=== PATIENT | male | born 1930 | race Caucasian/White ===

== ENCOUNTER 2017-02-07 15:15 | Inpatient (IN) | payer OTHER ==
[~2017-02-07] VITALS: Ht 182.9 cm; Wt 74.2 kg
[2017-02-07] MEDS ORDERED: SODIUM CHLORIDE 0.9% 1,000ML IVBOLUS ONE ×2 (16:30→17:30)
[2017-02-07 16:41] LABS: HEMATOCRIT 56.9 % (39.2-51.8); HEMOGLOBIN 19.1 g/dL (13.7-18.0); WHITE BLOOD COUNT 11.4 x10^3/uL (3.4-10)
[2017-02-07 16:55] LABS: BLOOD UREA NITROGEN 59 mg/dL (7-18)
[2017-02-07 17:01] LABS: ASPARTATE AMINO TRANSFERASE 98 U/L (15-37)
[2017-02-07 17:02] LABS: IS PT STATUS REG ER OR PRE ER? YES
[2017-02-07] MEDS ORDERED: POLYETHYLENE GLYCOL 17 GM PACKET PO PRN (18:00)
[2017-02-07] MEDS ORDERED: BISACODYL 10 MG SUPP PR PRN (18:00)
[2017-02-07] MEDS ORDERED: ONDANSETRON 2MG/ML, 2ML IVPush PRN (18:00)
[2017-02-07 20:00] VITALS: BP 110/85
[2017-02-07] MEDS: SODIUM CHLORIDE 0.9% 1,000 ML IV SCH (20:02)
[2017-02-07] MEDS: HEPARIN 5,000 UNITS/ML, 1ML SQ SCH (20:03)
[2017-02-08 02:38] VITALS: BP 134/60
[2017-02-08] MEDS: HEPARIN 5,000 UNITS/ML, 1ML SQ SCH ×3 (03:56→21:52)
[2017-02-08 05:01] LABS: HEMATOCRIT 47.8 % (39.2-51.8); HEMOGLOBIN 16.2 g/dL (13.7-18.0); WHITE BLOOD COUNT 9.1 x10^3/uL (3.4-10)
[2017-02-08] MEDS: SODIUM CHLORIDE 0.9% 1,000 ML IV SCH (05:11)
[2017-02-08 05:20] LABS: ASPARTATE AMINO TRANSFERASE 77 U/L (15-37); BLOOD UREA NITROGEN 44 mg/dL (7-18)
[2017-02-08 06:44] VITALS: BP 165/77
[2017-02-08] MEDS: SENNA/DOCUSATE TABLET PO SCH (09:33)
[2017-02-08] MEDS: POTASSIUM CHLORIDE 20 MEQ in DEXTROSE 5% 1,000 ML IV SCH ×2 (10:21→20:00)
[2017-02-08 14:07] VITALS: BP 133/79
[2017-02-08] MEDS: ASPIRIN 81 MG TABLET EC PO SCH (18:14)
[2017-02-08] MEDS: METOPROLOL TARTRATE 25 MG TABLET PO SCH (18:14)
[2017-02-08 18:21] LABS: BLOOD UREA NITROGEN 32 mg/dL (7-18)
[2017-02-08] MEDS: D5%-0.45NACL+KCL 20MEQ 1,000 ML IV SCH (21:51)
[2017-02-08 22:05] VITALS: BP 112/81
[2017-02-09 00:26] LABS: PATH.CAST-FLAG NOT PRESENT; SPERM-FLAG NOT PRESENT; SRC-FLAG NOT PRESENT; XTAL-FLAG NOT PRESENT; YLC-FLAG NOT PRESENT
[2017-02-09] MEDS ORDERED: NITROFURANTOIN (MACROBID) 100 MG CAPSULE PO SCH (01:00)
[2017-02-09] MEDS: NITROFURANTOIN 5MG/ML ORAL SUSP PO SCH ×3 (01:17→20:48)
[2017-02-09 02:00] VITALS: BP 110/73
[2017-02-09] MEDS: ASPIRIN 81 MG TABLET EC PO SCH (05:44)
[2017-02-09] MEDS: METOPROLOL TARTRATE 25 MG TABLET PO SCH ×2 (05:44→17:06)
[2017-02-09] MEDS: HEPARIN 5,000 UNITS/ML, 1ML SQ SCH ×3 (05:45→20:42)
[2017-02-09 06:03] LABS: HEMATOCRIT 43.1 % (39.2-51.8); HEMOGLOBIN 14.6 g/dL (13.7-18.0); WHITE BLOOD COUNT 8.3 x10^3/uL (3.4-10)
[2017-02-09] MEDS: D5%-0.45NACL+KCL 20MEQ 1,000 ML IV SCH ×2 (06:29→16:36)
[2017-02-09] MEDS: SENNA/DOCUSATE TABLET PO SCH (08:20)
[2017-02-09 08:27] VITALS: BP 115/68
[2017-02-09 12:32] LABS: BLOOD UREA NITROGEN 24 mg/dL (7-18)
[2017-02-09 13:50] VITALS: BP 149/89
[2017-02-09 18:09] LABS: BLOOD UREA NITROGEN 22 mg/dL (7-18)
[2017-02-09 19:06] VITALS: BP 124/67
[2017-02-10 01:20] VITALS: BP 130/73
[2017-02-10] MEDS: D5%-0.45NACL+KCL 20MEQ 1,000 ML IV SCH ×2 (03:30→15:49)
[2017-02-10 05:40] VITALS: BP 110/61
[2017-02-10] MEDS: ASPIRIN 81 MG TABLET EC PO SCH (05:44)
[2017-02-10] MEDS: METOPROLOL TARTRATE 25 MG TABLET PO SCH ×2 (05:45→18:45)
[2017-02-10] MEDS: HEPARIN 5,000 UNITS/ML, 1ML SQ SCH ×3 (05:45→21:44)
[2017-02-10 08:48] VITALS: BP 162/89
[2017-02-10] MEDS: SENNA/DOCUSATE TABLET PO SCH (09:00)
[2017-02-10] MEDS: NITROFURANTOIN 5MG/ML ORAL SUSP PO SCH (10:31)
[2017-02-10 13:48] VITALS: BP 114/66
[2017-02-10] MEDS: ACETAMINOPHEN 325 MG TABLET PO PRN (14:49)
[2017-02-10 15:41] LABS: BLOOD UREA NITROGEN 19 mg/dL (7-18)
[2017-02-10 18:51] VITALS: BP 132/61
[2017-02-10] MEDS: CEFTRIAXONE PMX 1GM/50ML 50 ML IV SCH (21:43)
[2017-02-11 00:29] VITALS: BP 145/80
[2017-02-11] MEDS: D5%-0.45NACL+KCL 20MEQ 1,000 ML IV SCH ×4 (02:43→15:52)
[2017-02-11] MEDS: HEPARIN 5,000 UNITS/ML, 1ML SQ SCH ×3 (04:24→22:12)
[2017-02-11] MEDS: ASPIRIN 81 MG TABLET EC PO SCH (04:25)
[2017-02-11] MEDS: METOPROLOL TARTRATE 25 MG TABLET PO SCH ×2 (04:25→18:48)
[2017-02-11] MEDS: SENNA/DOCUSATE TABLET PO SCH (09:00)
[2017-02-11 09:15] VITALS: BP 130/79
[2017-02-11 09:57] LABS: BLOOD UREA NITROGEN 18 mg/dL (7-18)
[2017-02-11] MEDS: ACETAMINOPHEN 325 MG TABLET PO PRN ×2 (14:03→22:22)
[2017-02-11 16:00] VITALS: BP 116/61
[2017-02-11] MEDS: CEFTRIAXONE PMX 1GM/50ML 50 ML IV SCH (17:18)
[2017-02-11 18:41] VITALS: BP 121/69
[2017-02-12] MEDS: D5%-0.45NACL+KCL 20MEQ 1,000 ML IV SCH ×3 (00:30→17:53)
[2017-02-12 01:39] VITALS: BP 108/63
[2017-02-12] MEDS: ASPIRIN 81 MG TABLET EC PO SCH (05:24)
[2017-02-12] MEDS: METOPROLOL TARTRATE 25 MG TABLET PO SCH ×2 (05:24→17:58)
[2017-02-12] MEDS: HEPARIN 5,000 UNITS/ML, 1ML SQ SCH ×3 (05:25→21:20)
[2017-02-12 05:45] LABS: BLOOD UREA NITROGEN 14 mg/dL (7-18)
[2017-02-12 05:53] LABS: HEMATOCRIT 41.1 % (39.2-51.8); HEMOGLOBIN 13.7 g/dL (13.7-18.0); WHITE BLOOD COUNT 6.4 x10^3/uL (3.4-10)
[2017-02-12 08:22] VITALS: BP 126/77
[2017-02-12] MEDS: SENNA/DOCUSATE TABLET PO SCH (09:00)
[2017-02-12 13:40] VITALS: BP 104/64
[2017-02-12] MEDS: CEFTRIAXONE PMX 1GM/50ML 50 ML IV SCH (17:53)
[2017-02-12] MEDS ORDERED: MAGNESIUM SULFATE PMX 2GM/50ML 50 ML IV ONE (18:30)
[2017-02-12 19:55] VITALS: BP 149/90
[2017-02-13 02:18] VITALS: BP 151/86
[2017-02-13] MEDS ORDERED: BISACODYL 10 MG SUPP PR PRN (04:30)
[2017-02-13] MEDS ORDERED: ONDANSETRON 2MG/ML, 2ML IVPush PRN (04:30)
[2017-02-13] MEDS ORDERED: ACETAMINOPHEN 325 MG TABLET PO PRN (04:30)
[2017-02-13] MEDS ORDERED: POLYETHYLENE GLYCOL 17 GM PACKET PO PRN (04:30)
[2017-02-13] MEDS: HEPARIN 5,000 UNITS/ML, 1ML SQ SCH ×3 (05:25→20:34)
[2017-02-13] MEDS: METOPROLOL TARTRATE 25 MG TABLET PO SCH ×2 (05:25→18:13)
[2017-02-13] MEDS: ASPIRIN 81 MG TABLET EC PO SCH (05:25)
[2017-02-13 06:13] LABS: BLOOD UREA NITROGEN 11 mg/dL (7-18)
[2017-02-13 06:34] VITALS: BP 123/67
[2017-02-13] MEDS: SENNA/DOCUSATE TABLET PO SCH (09:31)
[2017-02-13] MEDS: D5%-0.45NACL+KCL 20MEQ 1,000 ML IV SCH ×2 (09:31→20:33)
[2017-02-13 13:10] VITALS: BP 133/70
[2017-02-13] MEDS: CEFTRIAXONE PMX 1GM/50ML 50 ML IV SCH (17:06)
[2017-02-13 19:50] VITALS: BP 121/77
[2017-02-14] MEDS ORDERED: LORazepam 2 MG/ML, 1ML IVPush PRN (00:30)
[2017-02-14 02:00] VITALS: BP 131/78
[2017-02-14] MEDS: ASPIRIN 81 MG TABLET EC PO SCH ×2 (05:51→05:57)
[2017-02-14] MEDS: HEPARIN 5,000 UNITS/ML, 1ML SQ SCH ×3 (05:52→21:08)
[2017-02-14] MEDS: METOPROLOL TARTRATE 25 MG TABLET PO SCH ×3 (05:52→17:29)
[2017-02-14 05:59] LABS: BLOOD UREA NITROGEN 13 mg/dL (7-18)
[2017-02-14] MEDS: D5%-0.45NACL+KCL 20MEQ 1,000 ML IV SCH ×2 (06:36→17:16)
[2017-02-14 06:58] VITALS: BP 145/79
[2017-02-14] MEDS: SENNA/DOCUSATE TABLET PO SCH (08:29)
[2017-02-14 13:26] VITALS: BP 129/75
[2017-02-14] MEDS: CEFTRIAXONE PMX 1GM/50ML 50 ML IV SCH (17:18)
[2017-02-14 20:00] VITALS: BP 104/56
[2017-02-15 00:30] VITALS: BP 100/58
[2017-02-15] MEDS: HEPARIN 5,000 UNITS/ML, 1ML SQ SCH ×3 (05:04→20:33)
[2017-02-15] MEDS: ASPIRIN 81 MG TABLET EC PO SCH (05:04)
[2017-02-15] MEDS: METOPROLOL TARTRATE 25 MG TABLET PO SCH (05:06)
[2017-02-15 07:49] VITALS: BP 100/62
[2017-02-15] MEDS: SENNA/DOCUSATE TABLET PO SCH (08:48)
[2017-02-15 15:31] VITALS: BP 101/62
[2017-02-15 20:00] VITALS: BP 114/72
[2017-02-16 02:00] VITALS: BP 126/70
[2017-02-16] MEDS: ASPIRIN 81 MG TABLET EC PO SCH (05:19)
[2017-02-16] MEDS: HEPARIN 5,000 UNITS/ML, 1ML SQ SCH ×3 (05:20→19:54)
[2017-02-16 08:44] VITALS: BP 98/64
[2017-02-16] MEDS: SENNA/DOCUSATE TABLET PO SCH (08:50)
[2017-02-16 14:29] VITALS: BP 109/63
[2017-02-16 20:00] VITALS: BP 109/64
[2017-02-17 02:00] VITALS: BP 132/70
[2017-02-17] MEDS: ASPIRIN 81 MG TABLET EC PO SCH (05:25)
[2017-02-17] MEDS: HEPARIN 5,000 UNITS/ML, 1ML SQ SCH ×3 (05:25→20:58)
[2017-02-17 06:56] VITALS: BP 116/68
[2017-02-17 08:30] LABS: HEMATOCRIT 43.7 % (39.2-51.8); HEMOGLOBIN 14.7 g/dL (13.7-18.0); WHITE BLOOD COUNT 8.5 x10^3/uL (3.4-10)
[2017-02-17 08:38] LABS: ASPARTATE AMINO TRANSFERASE 27 U/L (15-37); BLOOD UREA NITROGEN 25 mg/dL (7-18)
[2017-02-17] MEDS: SENNA/DOCUSATE TABLET PO SCH (09:00)
[2017-02-17] MEDS: ATENOLOL 25 MG TABLET PO SCH (09:24)
[2017-02-17 12:45] VITALS: BP 125/77
[2017-02-17 19:16] VITALS: BP 106/65
[2017-02-18 01:46] VITALS: BP 111/58
[2017-02-18] MEDS: ATENOLOL 25 MG TABLET PO SCH (05:16)
[2017-02-18] MEDS: ASPIRIN 81 MG TABLET EC PO SCH (05:16)
[2017-02-18] MEDS: HEPARIN 5,000 UNITS/ML, 1ML SQ SCH ×3 (05:16→21:03)
[2017-02-18 08:17] VITALS: BP_SYST 102; BP_SYST 95; BP_DIAS 57; BP_DIAS 62
[2017-02-18] MEDS: SENNA/DOCUSATE TABLET PO SCH (09:31)
[2017-02-18 16:35] VITALS: BP_SYST 88; BP_SYST 91; BP_DIAS 50; BP_DIAS 53
[2017-02-18 19:08] VITALS: BP 123/62
[2017-02-18] MEDS ORDERED: ATENOLOL 25 MG TABLET PO SCH (21:00)
[2017-02-19 01:15] VITALS: BP 121/64
[2017-02-19] MEDS: ASPIRIN 81 MG TABLET EC PO SCH (05:19)
[2017-02-19] MEDS: HEPARIN 5,000 UNITS/ML, 1ML SQ SCH ×3 (05:19→22:16)
[2017-02-19] MEDS: SENNA/DOCUSATE TABLET PO SCH (09:00)
[2017-02-19 09:16] VITALS: BP 118/62
[2017-02-19 14:43] VITALS: BP 110/72
[2017-02-19 20:00] VITALS: BP 108/62
[2017-02-20 03:10] VITALS: BP 129/66
[2017-02-20] MEDS: ASPIRIN 81 MG TABLET EC PO SCH (05:51)
[2017-02-20] MEDS: HEPARIN 5,000 UNITS/ML, 1ML SQ SCH ×3 (05:51→21:39)
[2017-02-20 08:21] VITALS: BP 129/76
[2017-02-20] MEDS: SENNA/DOCUSATE TABLET PO SCH (09:35)
[2017-02-20] MEDS ORDERED: DIPHENHYDRAMINE 25 MG CAPSULE PO SCH (10:00)
[2017-02-20] MEDS: FAMOTIDINE 20 MG TABLET PO SCH ×2 (11:34→21:39)
[2017-02-20 13:26] VITALS: BP 110/65
[2017-02-20] MEDS ORDERED: ONDANSETRON 2MG/ML, 2ML IVPush PRN (20:00)
[2017-02-20] MEDS ORDERED: POLYETHYLENE GLYCOL 17 GM PACKET PO PRN (20:00)
[2017-02-20] MEDS ORDERED: BISACODYL 10 MG SUPP PR PRN (20:00)
[2017-02-20 20:52] VITALS: BP 110/72
[2017-02-20] MEDS: DIPHENHYDRAMINE 25 MG CAPSULE PO SCH (21:39)
[2017-02-21 02:50] VITALS: BP 115/66
[2017-02-21] MEDS: DIPHENHYDRAMINE 25 MG CAPSULE PO SCH ×3 (06:30→21:26)
[2017-02-21] MEDS: ASPIRIN 81 MG TABLET EC PO SCH (06:30)
[2017-02-21] MEDS: HEPARIN 5,000 UNITS/ML, 1ML SQ SCH ×3 (06:33→21:26)
[2017-02-21 07:10] VITALS: BP 122/86
[2017-02-21] MEDS: FAMOTIDINE 20 MG TABLET PO SCH ×2 (09:29→21:26)
[2017-02-21] MEDS: SENNA/DOCUSATE TABLET PO SCH (09:29)
[2017-02-21 13:52] VITALS: BP 111/72
[2017-02-21 19:20] VITALS: BP 115/64
[2017-02-22 01:15] VITALS: BP 113/71
[2017-02-22] MEDS: DIPHENHYDRAMINE 25 MG CAPSULE PO SCH ×3 (05:25→20:32)
[2017-02-22] MEDS: ASPIRIN 81 MG TABLET EC PO SCH (05:25)
[2017-02-22] MEDS: HEPARIN 5,000 UNITS/ML, 1ML SQ SCH ×3 (05:25→20:32)
[2017-02-22 08:26] VITALS: BP 169/82
[2017-02-22] MEDS: SENNA/DOCUSATE TABLET PO SCH (08:46)
[2017-02-22] MEDS: FAMOTIDINE 20 MG TABLET PO SCH ×2 (08:46→20:32)
[2017-02-22 14:50] VITALS: BP 108/72
[2017-02-22 19:38] VITALS: BP 115/68
[2017-02-23 04:39] VITALS: BP 119/79
[2017-02-23] MEDS: DIPHENHYDRAMINE 25 MG CAPSULE PO SCH ×3 (05:02→20:00)
[2017-02-23] MEDS: ASPIRIN 81 MG TABLET EC PO SCH (05:02)
[2017-02-23] MEDS: HEPARIN 5,000 UNITS/ML, 1ML SQ SCH ×3 (05:03→20:53)
[2017-02-23 08:14] VITALS: BP 115/75
[2017-02-23] MEDS ORDERED: SODIUM CHLORIDE 0.9% 1,000ML IVBOLUS ONE (10:00)
[2017-02-23] MEDS: SENNA/DOCUSATE TABLET PO SCH (10:38)
[2017-02-23] MEDS: FAMOTIDINE 20 MG TABLET PO SCH ×2 (10:38→20:53)
[2017-02-23 14:00] VITALS: BP 112/68
[2017-02-23 21:26] VITALS: BP 121/76
[2017-02-24 01:50] VITALS: BP 122/76
[2017-02-24] MEDS: HEPARIN 5,000 UNITS/ML, 1ML SQ SCH ×3 (05:19→20:00)
[2017-02-24] MEDS: DIPHENHYDRAMINE 25 MG CAPSULE PO SCH ×3 (05:19→20:00)
[2017-02-24] MEDS: ASPIRIN 81 MG TABLET EC PO SCH (05:19)
[2017-02-24 07:25] VITALS: BP 115/66
[2017-02-24] MEDS: FAMOTIDINE 20 MG TABLET PO SCH ×2 (09:24→20:00)
[2017-02-24] MEDS: SENNA/DOCUSATE TABLET PO SCH (09:24)
[2017-02-24 14:40] VITALS: BP 98/67
[2017-02-24] MEDS: SODIUM CHLORIDE 0.9% 1,000 ML IV SCH (15:10)
[2017-02-24 19:24] VITALS: BP 107/70
[2017-02-25 01:15] VITALS: BP 105/63
[2017-02-25] MEDS: DIPHENHYDRAMINE 25 MG CAPSULE PO SCH ×3 (05:34→22:00)
[2017-02-25] MEDS: ASPIRIN 81 MG TABLET EC PO SCH (05:34)
[2017-02-25] MEDS: HEPARIN 5,000 UNITS/ML, 1ML SQ SCH ×3 (05:34→22:00)
[2017-02-25] MEDS: SODIUM CHLORIDE 0.9% 1,000 ML IV SCH ×2 (05:37→17:05)
[2017-02-25] MEDS: FAMOTIDINE 20 MG TABLET PO SCH ×2 (08:27→22:00)
[2017-02-25] MEDS: SENNA/DOCUSATE TABLET PO SCH (08:27)
[2017-02-25] MEDS: METOPROLOL TARTRATE 25 MG TABLET PO SCH (08:32)
[2017-02-25 08:52] VITALS: BP 108/61
[2017-02-25 14:23] LABS: HEMATOCRIT 39.2 % (39.2-51.8); HEMOGLOBIN 13.2 g/dL (13.7-18.0); WHITE BLOOD COUNT 7.2 x10^3/uL (3.4-10)
[2017-02-25 14:36] LABS: BLOOD UREA NITROGEN 33 mg/dL (7-18)
[2017-02-25 15:00] VITALS: BP 123/82
[2017-02-25 19:21] VITALS: BP 117/69
[2017-02-26 03:36] VITALS: BP 116/78
[2017-02-26 05:13] LABS: BLOOD UREA NITROGEN 27 mg/dL (7-18)
[2017-02-26] MEDS: HEPARIN 5,000 UNITS/ML, 1ML SQ SCH ×3 (05:57→20:11)
[2017-02-26] MEDS: SODIUM CHLORIDE 0.9% 1,000 ML IV SCH (05:57)
[2017-02-26] MEDS: DIPHENHYDRAMINE 25 MG CAPSULE PO SCH ×3 (05:57→20:10)
[2017-02-26] MEDS: ASPIRIN 81 MG TABLET EC PO SCH (05:58)
[2017-02-26 06:30] LABS: HEMATOCRIT 35.7 % (39.2-51.8); WHITE BLOOD COUNT 6.5 x10^3/uL (3.4-10)
[2017-02-26 08:48] VITALS: BP 114/75
[2017-02-26] MEDS: FAMOTIDINE 20 MG TABLET PO SCH ×2 (09:13→20:10)
[2017-02-26] MEDS: SENNA/DOCUSATE TABLET PO SCH (09:13)
[2017-02-26] MEDS: METOPROLOL TARTRATE 25 MG TABLET PO SCH (09:13)
[2017-02-26 15:31] VITALS: BP 120/73
[2017-02-26 20:16] VITALS: BP 118/72
[2017-02-27 02:10] VITALS: BP 114/64
[2017-02-27] MEDS ORDERED: FLU VACC QS2016-17 (36MOS+)UP/PF 0.5 ML IM-VACC ONE (05:00)
[2017-02-27] MEDS: SODIUM CHLORIDE 0.9% 1,000 ML IV SCH ×2 (06:13→22:31)
[2017-02-27] MEDS: DIPHENHYDRAMINE 25 MG CAPSULE PO SCH ×3 (06:14→22:31)
[2017-02-27] MEDS: HEPARIN 5,000 UNITS/ML, 1ML SQ SCH ×3 (06:14→22:31)
[2017-02-27] MEDS: ASPIRIN 81 MG TABLET EC PO SCH (06:14)
[2017-02-27 06:30] VITALS: BP 120/62
[2017-02-27] MEDS: METOPROLOL TARTRATE 25 MG TABLET PO SCH (10:00)
[2017-02-27] MEDS: SENNA/DOCUSATE TABLET PO SCH (10:00)
[2017-02-27] MEDS: FAMOTIDINE 20 MG TABLET PO SCH ×2 (10:00→22:31)
[2017-02-27] MEDS ORDERED: VANCOMYCIN PER PHARMACY MC PRN ×2 (13:00→16:30)
[2017-02-27] MEDS ORDERED: PHARMACOKINETIC MONITORING MC PRN (14:00)
[2017-02-27 14:25] VITALS: BP 111/49
[2017-02-27] MEDS ORDERED: ALBUTEROL SULFATE 2.5 MG/3 ML ONE (15:06)
[2017-02-27] MEDS ORDERED: ALBUTEROL SULFATE 2.5 MG/3 ML NPPB ONE (15:30)
[2017-02-27] MEDS: PIPERACILLIN/TAZO/PMX 3.375GM 50 ML IV SCH ×2 (15:32→22:37)
[2017-02-27] MEDS: VANCOMYCIN 1,600 MG in SODIUM CHLORIDE 0.9% 250 ML IV SCH (16:17)
[2017-02-27] MEDS ORDERED: ACETAMINOPHEN 325 MG TABLET PO PRN (16:30)
[2017-02-27] MEDS ORDERED: BISACODYL 10 MG SUPP PR PRN (16:30)
[2017-02-27] MEDS ORDERED: POLYETHYLENE GLYCOL 17 GM PACKET PO PRN (16:30)
[2017-02-27] MEDS ORDERED: ONDANSETRON 2MG/ML, 2ML IVPush PRN (16:30)
[2017-02-27 20:50] VITALS: BP 84/52
[2017-02-28 02:19] VITALS: BP 112/70
[2017-02-28 05:20] LABS: HEMATOCRIT 32.4 % (39.2-51.8); HEMOGLOBIN 11.1 g/dL (13.7-18.0); WHITE BLOOD COUNT 6.4 x10^3/uL (3.4-10)
[2017-02-28 05:41] LABS: BLOOD UREA NITROGEN 19 mg/dL (7-18)
[2017-02-28] MEDS: PIPERACILLIN/TAZO/PMX 3.375GM 50 ML IV SCH ×2 (06:07→18:38)
[2017-02-28] MEDS: HEPARIN 5,000 UNITS/ML, 1ML SQ SCH (06:08)
[2017-02-28] MEDS: DIPHENHYDRAMINE 25 MG CAPSULE PO SCH ×3 (06:08→23:53)
[2017-02-28] MEDS: ASPIRIN 81 MG TABLET EC PO SCH (06:08)
[2017-02-28 07:53] VITALS: BP 105/66
[2017-02-28] MEDS: FAMOTIDINE 20 MG TABLET PO SCH ×2 (08:23→21:00)
[2017-02-28] MEDS: METOPROLOL TARTRATE 25 MG TABLET PO SCH (08:23)
[2017-02-28] MEDS: SENNA/DOCUSATE TABLET PO SCH (08:23)
[2017-02-28] MEDS ORDERED: SODIUM CHLORIDE INHALATION 7%, 4 ML NPPB ONE (11:00)
[2017-02-28 15:53] VITALS: BP 104/67
[2017-02-28] MEDS: SODIUM CHLORIDE 0.9% 1,000 ML IV SCH (15:59)
[2017-02-28] MEDS: VANCOMYCIN 1,600 MG in SODIUM CHLORIDE 0.9% 250 ML IV SCH (16:00)
[2017-02-28] MEDS: ENOXAPARIN 100 MG/ML SQ SCH (16:00)
[2017-02-28 20:03] VITALS: BP 119/70
[2017-03-01] MEDS: PIPERACILLIN/TAZO/PMX 3.375GM 50 ML IV SCH ×3 (02:40→18:45)
[2017-03-01 02:45] VITALS: BP 107/72
[2017-03-01] MEDS: ENOXAPARIN 100 MG/ML SQ SCH ×2 (05:15→17:13)
[2017-03-01] MEDS: SODIUM CHLORIDE 0.9% 1,000 ML IV SCH ×2 (05:19→20:45)
[2017-03-01] MEDS: ASPIRIN 81 MG TABLET EC PO SCH (05:21)
[2017-03-01 07:14] VITALS: BP 98/56
[2017-03-01 07:20] LABS: HEMATOCRIT 32.3 % (39.2-51.8); WHITE BLOOD COUNT 6.3 x10^3/uL (3.4-10)
[2017-03-01 07:34] LABS: BLOOD UREA NITROGEN 14 mg/dL (7-18)
[2017-03-01] MEDS: FAMOTIDINE 20 MG TABLET PO SCH ×2 (09:07→20:36)
[2017-03-01] MEDS: DIPHENHYDRAMINE 25 MG CAPSULE PO SCH ×2 (09:13→17:12)
[2017-03-01] MEDS: METOPROLOL TARTRATE 25 MG TABLET PO SCH (09:13)
[2017-03-01] MEDS: SENNA/DOCUSATE TABLET PO SCH (09:13)
[2017-03-01] MEDS ORDERED: CYANOCOBALAMIN 1,000 MCG/ML, 1ML IM ONE (13:30)
[2017-03-01 14:30] VITALS: BP 104/64
[2017-03-01] MEDS: VANCOMYCIN 1,600 MG in SODIUM CHLORIDE 0.9% 250 ML IV SCH (15:11)
[2017-03-01 20:14] VITALS: BP 107/70
[2017-03-02 02:24] VITALS: BP 125/71
[2017-03-02] MEDS: PIPERACILLIN/TAZO/PMX 3.375GM 50 ML IV SCH ×2 (02:53→17:20)
[2017-03-02 05:02] LABS: HEMATOCRIT 34.1 % (39.2-51.8); HEMOGLOBIN 11.6 g/dL (13.7-18.0)
[2017-03-02 05:18] LABS: BLOOD UREA NITROGEN 12 mg/dL (7-18)
[2017-03-02] MEDS: DIPHENHYDRAMINE 25 MG CAPSULE PO SCH ×3 (05:24→20:58)
[2017-03-02] MEDS: ASPIRIN 81 MG TABLET EC PO SCH (05:24)
[2017-03-02] MEDS: ENOXAPARIN 100 MG/ML SQ SCH ×2 (05:24→17:21)
[2017-03-02 08:05] VITALS: BP 133/77
[2017-03-02] MEDS: SENNA/DOCUSATE TABLET PO SCH (09:57)
[2017-03-02] MEDS: FAMOTIDINE 20 MG TABLET PO SCH ×2 (09:57→20:58)
[2017-03-02] MEDS: METOPROLOL TARTRATE 25 MG TABLET PO SCH (09:58)
[2017-03-02] MEDS: SODIUM CHLORIDE 0.9% 1,000 ML IV SCH (17:21)
[2017-03-02] MEDS: VANCOMYCIN 1,600 MG in SODIUM CHLORIDE 0.9% 250 ML IV SCH (18:22)
[2017-03-02 20:07] VITALS: BP 104/56
[2017-03-03] MEDS: PIPERACILLIN/TAZO/PMX 3.375GM 50 ML IV SCH ×3 (01:22→17:28)
[2017-03-03 01:43] VITALS: BP 108/70
[2017-03-03] MEDS: ASPIRIN 81 MG TABLET EC PO SCH (05:28)
[2017-03-03] MEDS: DIPHENHYDRAMINE 25 MG CAPSULE PO SCH ×3 (05:28→20:20)
[2017-03-03] MEDS: ENOXAPARIN 100 MG/ML SQ SCH ×2 (05:28→17:28)
[2017-03-03 05:45] LABS: HEMATOCRIT 32.3 % (39.2-51.8); WHITE BLOOD COUNT 5.6 x10^3/uL (3.4-10)
[2017-03-03 05:56] LABS: BLOOD UREA NITROGEN 11 mg/dL (7-18)
[2017-03-03 08:10] VITALS: BP 112/73
[2017-03-03] MEDS: SODIUM CHLORIDE 0.9% 1,000 ML IV SCH (10:16)
[2017-03-03] MEDS: METOPROLOL TARTRATE 25 MG TABLET PO SCH (10:18)
[2017-03-03] MEDS: FAMOTIDINE 20 MG TABLET PO SCH ×2 (10:18→20:20)
[2017-03-03] MEDS: SENNA/DOCUSATE TABLET PO SCH (10:19)
[2017-03-03 13:44] VITALS: BP 110/78
[2017-03-03] MEDS: VANCOMYCIN 1,600 MG in SODIUM CHLORIDE 0.9% 250 ML IV SCH (18:35)
[2017-03-03 20:47] VITALS: BP 107/71
[2017-03-04] MEDS: PIPERACILLIN/TAZO/PMX 3.375GM 50 ML IV SCH ×3 (01:00→17:26)
[2017-03-04] MEDS: SODIUM CHLORIDE 0.9% 1,000 ML IV SCH ×2 (01:02→15:00)
[2017-03-04 02:18] VITALS: BP 115/67
[2017-03-04] MEDS: ENOXAPARIN 100 MG/ML SQ SCH ×2 (05:26→17:26)
[2017-03-04] MEDS: ASPIRIN 81 MG TABLET EC PO SCH (05:26)
[2017-03-04] MEDS: DIPHENHYDRAMINE 25 MG CAPSULE PO SCH ×2 (05:26→13:43)
[2017-03-04 07:41] VITALS: BP 126/80
[2017-03-04] MEDS: SENNA/DOCUSATE TABLET PO SCH (08:30)
[2017-03-04] MEDS: FAMOTIDINE 20 MG TABLET PO SCH ×2 (08:30→20:34)
[2017-03-04] MEDS: METOPROLOL TARTRATE 25 MG TABLET PO SCH (08:30)
[2017-03-04 13:40] VITALS: BP 108/74
[2017-03-04] MEDS: VANCOMYCIN 1,600 MG in SODIUM CHLORIDE 0.9% 250 ML IV SCH (18:27)
[2017-03-04] MEDS ORDERED: DIPHENHYDRAMINE 25 MG CAPSULE PO PRN (18:30)
[2017-03-04 18:41] VITALS: BP 131/72
[2017-03-05] MEDS: PIPERACILLIN/TAZO/PMX 3.375GM 50 ML IV SCH ×3 (01:00→17:43)
[2017-03-05 02:40] VITALS: BP 128/77
[2017-03-05] MEDS: ASPIRIN 81 MG TABLET EC PO SCH (05:42)
[2017-03-05] MEDS: ENOXAPARIN 100 MG/ML SQ SCH ×2 (05:42→17:43)
[2017-03-05 08:36] VITALS: BP 114/70
[2017-03-05] MEDS: METOPROLOL TARTRATE 25 MG TABLET PO SCH (08:37)
[2017-03-05] MEDS: SENNA/DOCUSATE TABLET PO SCH (08:38)
[2017-03-05] MEDS: FAMOTIDINE 20 MG TABLET PO SCH ×2 (08:38→20:20)
[2017-03-05 14:22] VITALS: BP 118/68
[2017-03-05] MEDS: VANCOMYCIN 1,600 MG in SODIUM CHLORIDE 0.9% 250 ML IV SCH (18:08)
[2017-03-05 19:21] VITALS: BP 127/81
[2017-03-06] MEDS: PIPERACILLIN/TAZO/PMX 3.375GM 50 ML IV SCH ×3 (01:39→17:09)
[2017-03-06 02:31] VITALS: BP 149/102
[2017-03-06 02:56] VITALS: BP 128/88
[2017-03-06] MEDS: ASPIRIN 81 MG TABLET EC PO SCH (05:26)
[2017-03-06] MEDS: ENOXAPARIN 100 MG/ML SQ SCH ×2 (05:26→17:09)
[2017-03-06 08:01] VITALS: BP 132/79
[2017-03-06] MEDS: FAMOTIDINE 20 MG TABLET PO SCH ×2 (08:41→20:17)
[2017-03-06] MEDS: METOPROLOL TARTRATE 25 MG TABLET PO SCH (08:41)
[2017-03-06] MEDS: SENNA/DOCUSATE TABLET PO SCH (08:42)
[2017-03-06 13:16] VITALS: BP 116/70
[2017-03-06] MEDS: VANCOMYCIN 1,600 MG in SODIUM CHLORIDE 0.9% 250 ML IV SCH (18:23)
[2017-03-06 20:08] VITALS: BP 153/82
[2017-03-06] MEDS ORDERED: PHARMACOKINETIC MONITORING MC PRN (22:00)
[2017-03-06] MEDS ORDERED: ONDANSETRON 2MG/ML, 2ML IVPush PRN (22:00)
[2017-03-06] MEDS ORDERED: VANCOMYCIN PER PHARMACY MC PRN (22:00)
[2017-03-06] MEDS ORDERED: POLYETHYLENE GLYCOL 17 GM PACKET PO PRN (22:00)
[2017-03-06] MEDS ORDERED: ACETAMINOPHEN 325 MG TABLET PO PRN (22:00)
[2017-03-06] MEDS ORDERED: BISACODYL 10 MG SUPP PR PRN (22:00)
[2017-03-07] MEDS: PIPERACILLIN/TAZO/PMX 3.375GM 50 ML IV SCH ×3 (01:08→17:36)
[2017-03-07 03:13] VITALS: BP 138/83
[2017-03-07] MEDS: ASPIRIN 81 MG TABLET EC PO SCH (06:05)
[2017-03-07] MEDS: ENOXAPARIN 100 MG/ML SQ SCH ×2 (06:05→17:36)
[2017-03-07 06:59] VITALS: BP 132/80
[2017-03-07] MEDS: METOPROLOL SUCCINATE 25 MG TAB.ER.24H PO SCH (08:00)
[2017-03-07 08:09] VITALS: BP 112/61
[2017-03-07] MEDS: SENNA/DOCUSATE TABLET PO SCH (08:47)
[2017-03-07] MEDS: FAMOTIDINE 20 MG TABLET PO SCH ×2 (10:04→21:35)
[2017-03-07 12:49] VITALS: BP 152/91
[2017-03-07] MEDS: VANCOMYCIN 1,600 MG in SODIUM CHLORIDE 0.9% 250 ML IV SCH (18:30)
[2017-03-07 20:15] VITALS: BP 125/80
[2017-03-07] MEDS: DIPHENHYDRAMINE 25 MG CAPSULE PO PRN (21:35)
[2017-03-08] MEDS: PIPERACILLIN/TAZO/PMX 3.375GM 50 ML IV SCH ×3 (01:27→16:33)
[2017-03-08 02:04] VITALS: BP 128/68
[2017-03-08] MEDS: ENOXAPARIN 100 MG/ML SQ SCH ×2 (06:03→16:33)
[2017-03-08] MEDS: ASPIRIN 81 MG TABLET EC PO SCH (06:03)
[2017-03-08] MEDS: METOPROLOL SUCCINATE 25 MG TAB.ER.24H PO SCH (06:04)
[2017-03-08 08:37] VITALS: BP 167/91
[2017-03-08] MEDS: SENNA/DOCUSATE TABLET PO SCH (09:04)
[2017-03-08] MEDS: FAMOTIDINE 20 MG TABLET PO SCH ×2 (09:04→21:37)
[2017-03-08 13:48] VITALS: BP 124/80
[2017-03-08 17:39] LABS: BLOOD UREA NITROGEN 12 mg/dL (7-18)
[2017-03-08] MEDS: VANCOMYCIN 1,600 MG in SODIUM CHLORIDE 0.9% 250 ML IV SCH (17:57)
[2017-03-08 19:14] VITALS: BP 122/77
[2017-03-08] MEDS: DIPHENHYDRAMINE 25 MG CAPSULE PO PRN (21:37)
[2017-03-09] MEDS: PIPERACILLIN/TAZO/PMX 3.375GM 50 ML IV SCH ×2 (00:34→10:40)
[2017-03-09 00:42] VITALS: BP 136/74
[2017-03-09] MEDS: ENOXAPARIN 100 MG/ML SQ SCH ×2 (05:27→17:00)
[2017-03-09] MEDS: METOPROLOL SUCCINATE 25 MG TAB.ER.24H PO SCH (05:28)
[2017-03-09] MEDS: ASPIRIN 81 MG TABLET EC PO SCH (05:28)
[2017-03-09] MEDS: SENNA/DOCUSATE TABLET PO SCH (09:00)
[2017-03-09] MEDS: FAMOTIDINE 20 MG TABLET PO SCH ×2 (09:00→21:19)
[2017-03-09 09:11] VITALS: BP 118/72
[2017-03-09 19:29] VITALS: BP 124/78
[2017-03-10 03:30] VITALS: BP 166/89
[2017-03-10] MEDS: METOPROLOL SUCCINATE 25 MG TAB.ER.24H PO SCH (05:27)
[2017-03-10] MEDS: ASPIRIN 81 MG TABLET EC PO SCH (05:27)
[2017-03-10] MEDS: ENOXAPARIN 100 MG/ML SQ SCH ×2 (05:28→17:58)
[2017-03-10 06:39] VITALS: BP 122/71
[2017-03-10] MEDS: FAMOTIDINE 20 MG TABLET PO SCH ×2 (09:00→20:59)
[2017-03-10] MEDS: SENNA/DOCUSATE TABLET PO SCH (09:00)
[2017-03-10 12:54] VITALS: BP 122/66
[2017-03-10 18:56] VITALS: BP 118/86
[2017-03-11 01:10] VITALS: BP 133/78
[2017-03-11] MEDS: ENOXAPARIN 100 MG/ML SQ SCH ×2 (05:31→18:19)
[2017-03-11] MEDS: ASPIRIN 81 MG TABLET EC PO SCH (05:31)
[2017-03-11] MEDS: METOPROLOL SUCCINATE 25 MG TAB.ER.24H PO SCH (05:44)
[2017-03-11 08:06] VITALS: BP 130/76
[2017-03-11] MEDS: SENNA/DOCUSATE TABLET PO SCH (09:00)
[2017-03-11] MEDS: FAMOTIDINE 20 MG TABLET PO SCH ×2 (09:15→22:09)
[2017-03-11 15:11] VITALS: BP_SYST 116; BP_DIAS 70; BP_DIAS 76
[2017-03-11 18:49] VITALS: BP 127/71
[2017-03-12 00:06] VITALS: BP 125/78
[2017-03-12] MEDS: ASPIRIN 81 MG TABLET EC PO SCH (05:22)
[2017-03-12] MEDS: METOPROLOL SUCCINATE 25 MG TAB.ER.24H PO SCH (05:22)
[2017-03-12] MEDS: ENOXAPARIN 100 MG/ML SQ SCH ×2 (05:22→18:11)
[2017-03-12] MEDS: FAMOTIDINE 20 MG TABLET PO SCH ×2 (09:24→20:51)
[2017-03-12] MEDS: SENNA/DOCUSATE TABLET PO SCH (09:24)
[2017-03-12 09:35] VITALS: BP 133/90
[2017-03-12 13:20] VITALS: BP 128/72
[2017-03-12 18:47] VITALS: BP 111/61
[2017-03-12] MEDS: DIPHENHYDRAMINE 25 MG CAPSULE PO PRN (20:56)
[2017-03-13 02:37] VITALS: BP 104/63
[2017-03-13] MEDS: ENOXAPARIN 100 MG/ML SQ SCH ×2 (05:17→17:05)
[2017-03-13] MEDS: ASPIRIN 81 MG TABLET EC PO SCH (05:17)
[2017-03-13] MEDS: METOPROLOL SUCCINATE 25 MG TAB.ER.24H PO SCH (05:17)
[2017-03-13 07:21] VITALS: BP 110/56
[2017-03-13] MEDS: SENNA/DOCUSATE TABLET PO SCH (09:53)
[2017-03-13] MEDS: FAMOTIDINE 20 MG TABLET PO SCH ×2 (09:53→21:33)
[2017-03-13 14:00] VITALS: BP 104/63
[2017-03-13 18:58] VITALS: BP 111/67
[2017-03-13] MEDS ORDERED: ONDANSETRON 2MG/ML, 2ML IVPush PRN (19:30)
[2017-03-13] MEDS ORDERED: BISACODYL 10 MG SUPP PR PRN (19:30)
[2017-03-13] MEDS ORDERED: ACETAMINOPHEN 325 MG TABLET PO PRN (19:30)
[2017-03-13] MEDS ORDERED: POLYETHYLENE GLYCOL 17 GM PACKET PO PRN (19:30)
[2017-03-13] MEDS: DIPHENHYDRAMINE 25 MG CAPSULE PO PRN (21:33)
[2017-03-14 01:29] VITALS: BP 123/66
[2017-03-14] MEDS: ASPIRIN 81 MG TABLET EC PO SCH (05:29)
[2017-03-14] MEDS: ENOXAPARIN 100 MG/ML SQ SCH ×2 (05:30→17:14)
[2017-03-14] MEDS: METOPROLOL SUCCINATE 25 MG TAB.ER.24H PO SCH (05:30)
[2017-03-14 07:40] VITALS: BP 136/86
[2017-03-14] MEDS: FAMOTIDINE 20 MG TABLET PO SCH ×2 (10:19→19:57)
[2017-03-14] MEDS: SENNA/DOCUSATE TABLET PO SCH (10:19)
[2017-03-14 14:24] VITALS: BP 118/69
[2017-03-14 19:30] VITALS: BP 112/69
[2017-03-15 04:00] VITALS: BP 125/76
[2017-03-15] MEDS: ENOXAPARIN 100 MG/ML SQ SCH ×2 (05:21→17:12)
[2017-03-15] MEDS: METOPROLOL SUCCINATE 25 MG TAB.ER.24H PO SCH (05:21)
[2017-03-15] MEDS: ASPIRIN 81 MG TABLET EC PO SCH (05:21)
[2017-03-15 07:40] VITALS: BP 130/89
[2017-03-15] MEDS: FAMOTIDINE 20 MG TABLET PO SCH ×2 (08:27→22:09)
[2017-03-15] MEDS: SENNA/DOCUSATE TABLET PO SCH (08:28)
[2017-03-15 15:28] VITALS: BP 95/59
[2017-03-15 19:38] VITALS: BP 134/79
[2017-03-15] MEDS: DIPHENHYDRAMINE 25 MG CAPSULE PO PRN (22:09)
[2017-03-16 00:33] VITALS: BP 151/89
[2017-03-16] MEDS: ASPIRIN 81 MG TABLET EC PO SCH (05:47)
[2017-03-16] MEDS: ENOXAPARIN 100 MG/ML SQ SCH ×2 (05:48→18:22)
[2017-03-16] MEDS: METOPROLOL SUCCINATE 25 MG TAB.ER.24H PO SCH (05:48)
[2017-03-16] MEDS: FAMOTIDINE 20 MG TABLET PO SCH ×2 (08:51→19:39)
[2017-03-16] MEDS: SENNA/DOCUSATE TABLET PO SCH (08:51)
[2017-03-16 09:19] VITALS: BP 126/72
[2017-03-16 14:41] VITALS: BP 132/70
[2017-03-16] MEDS: DIPHENHYDRAMINE 25 MG CAPSULE PO PRN (19:10)
[2017-03-16 19:17] VITALS: BP 148/82
[2017-03-17 01:40] VITALS: BP 92/51
[2017-03-17] MEDS: METOPROLOL SUCCINATE 25 MG TAB.ER.24H PO SCH (05:57)
[2017-03-17] MEDS: ENOXAPARIN 100 MG/ML SQ SCH (05:58)
[2017-03-17] MEDS: ASPIRIN 81 MG TABLET EC PO SCH (05:59)
[2017-03-17 08:22] VITALS: BP 131/70
[2017-03-17] MEDS: DIPHENHYDRAMINE 25 MG CAPSULE PO PRN ×2 (08:39→22:37)
[2017-03-17] MEDS: SENNA/DOCUSATE TABLET PO SCH (08:40)
[2017-03-17] MEDS: FAMOTIDINE 20 MG TABLET PO SCH ×2 (08:40→22:30)
[2017-03-17 14:30] VITALS: BP 119/64
[2017-03-17 21:04] VITALS: BP 116/68
[2017-03-17] MEDS: ENOXAPARIN 80 MG/0.8 ML SQ SCH (22:31)
[2017-03-18 02:44] VITALS: BP 107/54
[2017-03-18 05:00] LABS: HEMATOCRIT 36.4 % (39.2-51.8); HEMOGLOBIN 12.4 g/dL (13.7-18.0); WHITE BLOOD COUNT 5.2 x10^3/uL (3.4-10)
[2017-03-18 05:11] LABS: BLOOD UREA NITROGEN 20 mg/dL (7-18)
[2017-03-18] MEDS: ASPIRIN 81 MG TABLET EC PO SCH (06:15)
[2017-03-18] MEDS: METOPROLOL SUCCINATE 25 MG TAB.ER.24H PO SCH (06:16)
[2017-03-18 08:09] VITALS: BP 133/75
[2017-03-18] MEDS: FAMOTIDINE 20 MG TABLET PO SCH ×2 (09:21→22:07)
[2017-03-18] MEDS: SENNA/DOCUSATE TABLET PO SCH (09:21)
[2017-03-18] MEDS: ENOXAPARIN 80 MG/0.8 ML SQ SCH ×2 (10:57→22:07)
[2017-03-18 12:47] VITALS: BP 128/72
[2017-03-18] MEDS: DIPHENHYDRAMINE 25 MG CAPSULE PO PRN ×2 (14:26→22:07)
[2017-03-18 19:24] VITALS: BP 130/70
[2017-03-19 02:32] VITALS: BP 111/60
[2017-03-19 06:26] VITALS: BP 135/75
[2017-03-19] MEDS: ASPIRIN 81 MG TABLET EC PO SCH (06:27)
[2017-03-19] MEDS: METOPROLOL SUCCINATE 25 MG TAB.ER.24H PO SCH (06:28)
[2017-03-19] MEDS: DIPHENHYDRAMINE 25 MG CAPSULE PO PRN ×2 (09:19→19:43)
[2017-03-19] MEDS: FAMOTIDINE 20 MG TABLET PO SCH ×2 (09:19→21:02)
[2017-03-19] MEDS: SENNA/DOCUSATE TABLET PO SCH (09:19)
[2017-03-19] MEDS: ENOXAPARIN 80 MG/0.8 ML SQ SCH ×2 (09:24→21:03)
[2017-03-19 13:00] VITALS: BP 124/70
[2017-03-19 19:55] VITALS: BP 141/79
[2017-03-20 03:53] VITALS: BP 136/71
[2017-03-20 07:51] VITALS: BP 110/64
[2017-03-20] MEDS: FAMOTIDINE 20 MG TABLET PO SCH ×2 (08:52→21:21)
[2017-03-20] MEDS: ASPIRIN 81 MG TABLET EC PO SCH (08:53)
[2017-03-20] MEDS: SENNA/DOCUSATE TABLET PO SCH (08:54)
[2017-03-20] MEDS: METOPROLOL SUCCINATE 25 MG TAB.ER.24H PO SCH (08:56)
[2017-03-20] MEDS: ENOXAPARIN 80 MG/0.8 ML SQ SCH ×2 (10:27→21:21)
[2017-03-20 13:48] VITALS: BP 112/64
[2017-03-20] MEDS ORDERED: ACETAMINOPHEN 325 MG TABLET PO PRN (16:00)
[2017-03-20] MEDS ORDERED: ONDANSETRON 2MG/ML, 2ML IVPush PRN (16:00)
[2017-03-20] MEDS ORDERED: BISACODYL 10 MG SUPP PR PRN (16:00)
[2017-03-20] MEDS ORDERED: POLYETHYLENE GLYCOL 17 GM PACKET PO PRN (16:00)
[2017-03-20 19:53] VITALS: BP 113/73
[2017-03-20] MEDS: DIPHENHYDRAMINE 25 MG CAPSULE PO PRN (22:37)
[2017-03-21] MEDS: DIPHENHYDRAMINE 25 MG CAPSULE PO PRN (00:50)
[2017-03-21 04:00] VITALS: BP 135/70
[2017-03-21] MEDS: METOPROLOL SUCCINATE 25 MG TAB.ER.24H PO SCH (05:45)
[2017-03-21] MEDS: ASPIRIN 81 MG TABLET EC PO SCH (06:00)
[2017-03-21 08:18] VITALS: BP 135/69
[2017-03-21] MEDS: FAMOTIDINE 20 MG TABLET PO SCH ×2 (10:03→21:57)
[2017-03-21] MEDS: SENNA/DOCUSATE TABLET PO SCH (10:04)
[2017-03-21] MEDS: ENOXAPARIN 80 MG/0.8 ML SQ SCH ×2 (10:04→21:56)
[2017-03-21 15:45] VITALS: BP 109/65
[2017-03-21 18:46] VITALS: BP 125/78
[2017-03-22 01:16] VITALS: BP 127/79
[2017-03-22] MEDS: ASPIRIN 81 MG TABLET EC PO SCH (05:14)
[2017-03-22] MEDS: METOPROLOL SUCCINATE 25 MG TAB.ER.24H PO SCH (05:14)
[2017-03-22 05:37] LABS: BLOOD UREA NITROGEN 17 mg/dL (7-18)
[2017-03-22 08:46] VITALS: BP 118/70
[2017-03-22] MEDS: FAMOTIDINE 20 MG TABLET PO SCH ×2 (09:38→20:49)
[2017-03-22] MEDS: SENNA/DOCUSATE TABLET PO SCH (09:38)
[2017-03-22] MEDS: ENOXAPARIN 80 MG/0.8 ML SQ SCH ×2 (09:39→20:49)
[2017-03-22 14:46] VITALS: BP 120/66
[2017-03-22 19:55] VITALS: BP 127/80
[2017-03-22] MEDS: HYDROCORTISONE CRM 1%, 30GM TP SCH (21:30)
[2017-03-23 01:27] VITALS: BP 142/71
[2017-03-23] MEDS: ASPIRIN 81 MG TABLET EC PO SCH (06:16)
[2017-03-23] MEDS: METOPROLOL SUCCINATE 25 MG TAB.ER.24H PO SCH (06:17)
[2017-03-23 07:27] VITALS: BP 134/74
[2017-03-23] MEDS: SENNA/DOCUSATE TABLET PO SCH (09:11)
[2017-03-23] MEDS: HYDROCORTISONE CRM 1%, 30GM TP SCH ×2 (10:26→23:03)
[2017-03-23] MEDS: ENOXAPARIN 80 MG/0.8 ML SQ SCH ×3 (10:26→23:09)
[2017-03-23] MEDS: FAMOTIDINE 20 MG TABLET PO SCH ×2 (10:26→21:00)
[2017-03-23 12:54] VITALS: BP 140/77
[2017-03-23] MEDS ORDERED: HALOPERIDOL 5 MG/ML IM ONE (13:30)
[2017-03-23] MEDS: DIPHENHYDRAMINE 25 MG CAPSULE PO PRN (13:39)
[2017-03-23 18:30] VITALS: BP 131/59
[2017-03-24 02:27] VITALS: BP 119/72
[2017-03-24 06:54] VITALS: BP 119/71
[2017-03-24] MEDS: FAMOTIDINE 20 MG TABLET PO SCH ×2 (11:00→20:22)
[2017-03-24] MEDS: HYDROCORTISONE CRM 1%, 30GM TP SCH ×2 (11:00→20:22)
[2017-03-24] MEDS: ASPIRIN 81 MG TABLET EC PO SCH (11:00)
[2017-03-24] MEDS: SENNA/DOCUSATE TABLET PO SCH (11:00)
[2017-03-24] MEDS: METOPROLOL SUCCINATE 25 MG TAB.ER.24H PO SCH (11:00)
[2017-03-24 14:49] VITALS: BP 124/79
[2017-03-24 19:04] VITALS: BP 117/71
[2017-03-24] MEDS: ENOXAPARIN 80 MG/0.8 ML SQ SCH (20:22)
[2017-03-24] MEDS: DIPHENHYDRAMINE 25 MG CAPSULE PO PRN (20:26)
[2017-03-25 01:40] VITALS: BP 125/63
[2017-03-25] MEDS: METOPROLOL SUCCINATE 25 MG TAB.ER.24H PO SCH (06:00)
[2017-03-25] MEDS: ASPIRIN 81 MG TABLET EC PO SCH (06:00)
[2017-03-25 06:38] VITALS: BP 129/87
[2017-03-25] MEDS: SENNA/DOCUSATE TABLET PO SCH (10:05)
[2017-03-25] MEDS: FAMOTIDINE 20 MG TABLET PO SCH ×2 (10:05→20:54)
[2017-03-25] MEDS: HYDROCORTISONE CRM 1%, 30GM TP SCH ×2 (10:05→20:55)
[2017-03-25] MEDS: ENOXAPARIN 80 MG/0.8 ML SQ SCH ×2 (10:06→21:56)
[2017-03-25 12:57] VITALS: BP 115/63
[2017-03-25 19:25] VITALS: BP 128/76
[2017-03-26 00:53] VITALS: BP_SYST 100; BP_SYST 127; BP_DIAS 65; BP_DIAS 80
[2017-03-26] MEDS: METOPROLOL SUCCINATE 25 MG TAB.ER.24H PO SCH (05:43)
[2017-03-26] MEDS: ASPIRIN 81 MG TABLET EC PO SCH (05:46)
[2017-03-26 06:45] VITALS: BP 111/67
[2017-03-26] MEDS: SENNA/DOCUSATE TABLET PO SCH (09:29)
[2017-03-26] MEDS: FAMOTIDINE 20 MG TABLET PO SCH ×2 (09:29→20:50)
[2017-03-26] MEDS: ENOXAPARIN 80 MG/0.8 ML SQ SCH ×2 (09:29→20:52)
[2017-03-26] MEDS: HYDROCORTISONE CRM 1%, 30GM TP SCH ×2 (09:29→20:51)
[2017-03-26 12:20] VITALS: BP 114/74
[2017-03-26 19:23] VITALS: BP 118/77
[2017-03-27 00:31] VITALS: BP 125/89
[2017-03-27] MEDS: METOPROLOL SUCCINATE 25 MG TAB.ER.24H PO SCH (05:34)
[2017-03-27] MEDS: ASPIRIN 81 MG TABLET EC PO SCH (05:34)
[2017-03-27 06:50] VITALS: BP 128/73
[2017-03-27] MEDS: SENNA/DOCUSATE TABLET PO SCH (08:36)
[2017-03-27] MEDS: FAMOTIDINE 20 MG TABLET PO SCH ×2 (08:36→20:03)
[2017-03-27] MEDS: HYDROCORTISONE CRM 1%, 30GM TP SCH ×2 (08:37→20:04)
[2017-03-27] MEDS: ENOXAPARIN 80 MG/0.8 ML SQ SCH ×2 (10:01→20:03)
[2017-03-27 13:24] VITALS: BP 118/63
[2017-03-27] MEDS ORDERED: BISACODYL 10 MG SUPP PR PRN (16:00)
[2017-03-27] MEDS ORDERED: ONDANSETRON 2MG/ML, 2ML IVPush PRN (16:00)
[2017-03-27] MEDS ORDERED: POLYETHYLENE GLYCOL 17 GM PACKET PO PRN (16:00)
[2017-03-27 19:19] VITALS: BP 127/78
[2017-03-28 00:46] VITALS: BP 139/87
[2017-03-28] MEDS: ASPIRIN 81 MG TABLET EC PO SCH (05:40)
[2017-03-28 05:41] LABS: HEMATOCRIT 40.7 % (39.2-51.8); HEMOGLOBIN 13.9 g/dL (13.7-18.0); WHITE BLOOD COUNT 5.9 x10^3/uL (3.4-10)
[2017-03-28] MEDS: METOPROLOL SUCCINATE 25 MG TAB.ER.24H PO SCH (05:41)
[2017-03-28 05:42] LABS: BLOOD UREA NITROGEN 28 mg/dL (7-18)
[2017-03-28 06:48] VITALS: BP 111/77
[2017-03-28] MEDS: FAMOTIDINE 20 MG TABLET PO SCH ×3 (08:12→20:55)
[2017-03-28] MEDS: SENNA/DOCUSATE TABLET PO SCH (08:12)
[2017-03-28] MEDS: HYDROCORTISONE CRM 1%, 30GM TP SCH ×2 (08:13→20:55)
[2017-03-28] MEDS: ENOXAPARIN 80 MG/0.8 ML SQ SCH ×2 (09:09→20:54)
[2017-03-28 13:13] VITALS: BP 107/73
[2017-03-28 19:27] VITALS: BP 102/69
[2017-03-29 01:37] VITALS: BP 131/66
[2017-03-29] MEDS: ASPIRIN 81 MG TABLET EC PO SCH (05:41)
[2017-03-29] MEDS: METOPROLOL SUCCINATE 25 MG TAB.ER.24H PO SCH (05:41)
[2017-03-29] MEDS: HYDROCORTISONE CRM 1%, 30GM TP SCH ×2 (08:05→20:24)
[2017-03-29] MEDS: SENNA/DOCUSATE TABLET PO SCH (08:05)
[2017-03-29] MEDS: FAMOTIDINE 20 MG TABLET PO SCH ×2 (08:05→20:23)
[2017-03-29 08:19] VITALS: BP 121/74
[2017-03-29] MEDS: ENOXAPARIN 80 MG/0.8 ML SQ SCH ×2 (10:19→21:44)
[2017-03-29 16:22] VITALS: BP 118/73
[2017-03-29 19:07] VITALS: BP 130/83
[2017-03-30 01:58] VITALS: BP 139/75
[2017-03-30] MEDS: METOPROLOL SUCCINATE 25 MG TAB.ER.24H PO SCH (06:00)
[2017-03-30 08:01] VITALS: BP 113/72
[2017-03-30] MEDS: FAMOTIDINE 20 MG TABLET PO SCH ×2 (08:17→20:10)
[2017-03-30] MEDS: SENNA/DOCUSATE TABLET PO SCH (08:17)
[2017-03-30] MEDS: DIPHENHYDRAMINE 25 MG CAPSULE PO PRN ×2 (08:17→20:10)
[2017-03-30] MEDS: HYDROCORTISONE CRM 1%, 30GM TP SCH ×2 (08:18→20:10)
[2017-03-30] MEDS: ENOXAPARIN 80 MG/0.8 ML SQ SCH ×2 (08:18→20:11)
[2017-03-30 13:59] VITALS: BP 130/82
[2017-03-30 18:34] VITALS: BP 121/71
[2017-03-31 02:21] VITALS: BP 116/75
[2017-03-31] MEDS: METOPROLOL SUCCINATE 25 MG TAB.ER.24H PO SCH (06:00)
[2017-03-31 07:18] VITALS: BP 135/70
[2017-03-31] MEDS: HYDROCORTISONE CRM 1%, 30GM TP SCH ×2 (09:02→20:27)
[2017-03-31] MEDS: FAMOTIDINE 20 MG TABLET PO SCH ×2 (09:06→20:27)
[2017-03-31] MEDS: ENOXAPARIN 80 MG/0.8 ML SQ SCH ×2 (09:06→20:27)
[2017-03-31] MEDS: SENNA/DOCUSATE TABLET PO SCH (09:06)
[2017-03-31 12:52] VITALS: BP 127/83
[2017-03-31 19:24] VITALS: BP 107/69
[2017-04-01 00:03] VITALS: BP 121/75
[2017-04-01] MEDS: METOPROLOL SUCCINATE 25 MG TAB.ER.24H PO SCH (06:02)
[2017-04-01 07:19] VITALS: BP 109/62
[2017-04-01] MEDS: SENNA/DOCUSATE TABLET PO SCH (11:40)
[2017-04-01] MEDS: HYDROCORTISONE CRM 1%, 30GM TP SCH ×2 (11:40→20:20)
[2017-04-01] MEDS: ENOXAPARIN 80 MG/0.8 ML SQ SCH ×2 (11:40→22:09)
[2017-04-01] MEDS: FAMOTIDINE 20 MG TABLET PO SCH ×2 (11:41→20:20)
[2017-04-01 13:25] VITALS: BP 118/73
[2017-04-01 18:45] VITALS: BP 124/73
[2017-04-02 00:28] VITALS: BP 138/82
[2017-04-02] MEDS: METOPROLOL SUCCINATE 25 MG TAB.ER.24H PO SCH (06:32)
[2017-04-02 07:29] VITALS: BP 101/67
[2017-04-02] MEDS: HYDROCORTISONE CRM 1%, 30GM TP SCH ×2 (08:04→21:27)
[2017-04-02] MEDS: SENNA/DOCUSATE TABLET PO SCH (08:04)
[2017-04-02] MEDS: FAMOTIDINE 20 MG TABLET PO SCH ×2 (08:04→21:26)
[2017-04-02] MEDS: ENOXAPARIN 80 MG/0.8 ML SQ SCH ×2 (11:20→21:26)
[2017-04-02 14:00] VITALS: BP 122/77
[2017-04-02 18:38] VITALS: BP 117/74
[2017-04-03 02:30] VITALS: BP 117/75
[2017-04-03] MEDS: METOPROLOL SUCCINATE 25 MG TAB.ER.24H PO SCH (06:00)
[2017-04-03 06:35] VITALS: BP 132/77
[2017-04-03] MEDS: HYDROCORTISONE CRM 1%, 30GM TP SCH ×2 (10:18→21:42)
[2017-04-03] MEDS: ENOXAPARIN 80 MG/0.8 ML SQ SCH ×2 (10:18→21:42)
[2017-04-03] MEDS: FAMOTIDINE 20 MG TABLET PO SCH ×2 (10:19→21:42)
[2017-04-03] MEDS: SENNA/DOCUSATE TABLET PO SCH (10:19)
[2017-04-03] MEDS: ACETAMINOPHEN 325 MG TABLET PO PRN (10:23)
[2017-04-03 12:50] VITALS: BP 117/78
[2017-04-03 15:02] VITALS: BP 168/78
[2017-04-03 19:22] VITALS: BP 109/75
[2017-04-03] MEDS ORDERED: BISACODYL 10 MG SUPP PR PRN (20:30)
[2017-04-03] MEDS ORDERED: POLYETHYLENE GLYCOL 17 GM PACKET PO PRN (20:30)
[2017-04-03] MEDS ORDERED: ONDANSETRON 2MG/ML, 2ML IVPush PRN (20:30)
[2017-04-04 00:54] VITALS: BP 137/83
[2017-04-04] MEDS: METOPROLOL SUCCINATE 25 MG TAB.ER.24H PO SCH (05:45)
[2017-04-04 07:06] VITALS: BP 119/71
[2017-04-04] MEDS: FAMOTIDINE 20 MG TABLET PO SCH ×2 (10:26→21:39)
[2017-04-04] MEDS: ENOXAPARIN 80 MG/0.8 ML SQ SCH ×2 (10:27→21:39)
[2017-04-04] MEDS: SENNA/DOCUSATE TABLET PO SCH (10:27)
[2017-04-04] MEDS: HYDROCORTISONE CRM 1%, 30GM TP SCH ×2 (10:27→21:39)
[2017-04-04 12:23] VITALS: BP 127/78
[2017-04-04 19:15] VITALS: BP 118/72
[2017-04-05 02:01] VITALS: BP 120/71
[2017-04-05] MEDS: METOPROLOL SUCCINATE 25 MG TAB.ER.24H PO SCH (05:11)
[2017-04-05 07:49] VITALS: BP 124/81
[2017-04-05] MEDS: HYDROCORTISONE CRM 1%, 30GM TP SCH ×2 (08:41→20:57)
[2017-04-05] MEDS: ENOXAPARIN 80 MG/0.8 ML SQ SCH ×2 (08:41→20:57)
[2017-04-05] MEDS: SENNA/DOCUSATE TABLET PO SCH (08:44)
[2017-04-05] MEDS: FAMOTIDINE 20 MG TABLET PO SCH ×2 (08:44→20:57)
[2017-04-05 13:02] VITALS: BP 119/76
[2017-04-05 19:28] VITALS: BP 131/84
[2017-04-06 02:34] VITALS: BP 121/69
[2017-04-06] MEDS: METOPROLOL SUCCINATE 25 MG TAB.ER.24H PO SCH (05:48)
[2017-04-06 07:57] VITALS: BP 114/75
[2017-04-06] MEDS: SENNA/DOCUSATE TABLET PO SCH (09:00)
[2017-04-06] MEDS: FAMOTIDINE 20 MG TABLET PO SCH ×2 (09:00→19:52)
[2017-04-06] MEDS: HYDROCORTISONE CRM 1%, 30GM TP SCH ×2 (09:53→19:53)
[2017-04-06] MEDS: ENOXAPARIN 80 MG/0.8 ML SQ SCH ×2 (09:57→21:53)
[2017-04-06 13:27] VITALS: BP 112/70
[2017-04-06 15:22] VITALS: BP 117/65
[2017-04-06 19:11] VITALS: BP 115/69
[2017-04-06] MEDS: ACETAMINOPHEN 325 MG TABLET PO PRN (19:53)
[2017-04-07 03:57] VITALS: BP 124/74
[2017-04-07] MEDS: METOPROLOL SUCCINATE 25 MG TAB.ER.24H PO SCH (05:49)
[2017-04-07 06:45] VITALS: BP 141/78
[2017-04-07] MEDS: ACETAMINOPHEN 325 MG TABLET PO PRN (09:09)
[2017-04-07] MEDS: FAMOTIDINE 20 MG TABLET PO SCH ×2 (09:09→21:31)
[2017-04-07] MEDS: HYDROCORTISONE CRM 1%, 30GM TP SCH ×2 (09:10→21:31)
[2017-04-07] MEDS: ENOXAPARIN 80 MG/0.8 ML SQ SCH ×2 (09:10→21:31)
[2017-04-07] MEDS: SENNA/DOCUSATE TABLET PO SCH (09:10)
[2017-04-07 13:27] VITALS: BP 123/68
[2017-04-07 18:46] VITALS: BP 117/74
[2017-04-08 04:06] VITALS: BP 120/80
[2017-04-08] MEDS: METOPROLOL SUCCINATE 25 MG TAB.ER.24H PO SCH (05:53)
[2017-04-08 06:35] VITALS: BP 116/70
[2017-04-08] MEDS: SENNA/DOCUSATE TABLET PO SCH (09:00)
[2017-04-08] MEDS: FAMOTIDINE 20 MG TABLET PO SCH ×2 (09:00→21:59)
[2017-04-08] MEDS: HYDROCORTISONE CRM 1%, 30GM TP SCH ×2 (11:36→21:59)
[2017-04-08] MEDS: ENOXAPARIN 80 MG/0.8 ML SQ SCH ×2 (11:37→23:42)
[2017-04-08 13:25] VITALS: BP 110/58
[2017-04-08 19:56] VITALS: BP 116/68
[2017-04-09 01:32] VITALS: BP 118/74
[2017-04-09] MEDS: METOPROLOL SUCCINATE 25 MG TAB.ER.24H PO SCH (05:12)
[2017-04-09 06:36] VITALS: BP 116/57
[2017-04-09] MEDS: SENNA/DOCUSATE TABLET PO SCH (09:00)
[2017-04-09] MEDS: FAMOTIDINE 20 MG TABLET PO SCH ×2 (10:00→20:35)
[2017-04-09] MEDS: HYDROCORTISONE CRM 1%, 30GM TP SCH ×2 (10:00→20:35)
[2017-04-09 14:00] VITALS: BP 120/70
[2017-04-09] MEDS: ENOXAPARIN 80 MG/0.8 ML SQ SCH (14:00)
[2017-04-09 16:52] VITALS: BP 107/65
[2017-04-09 18:33] VITALS: BP 121/65
[2017-04-09] MEDS: DIPHENHYDRAMINE 25 MG CAPSULE PO PRN (21:50)
[2017-04-10 01:11] VITALS: BP 127/65
[2017-04-10] MEDS ORDERED: HALOPERIDOL 5 MG/ML ONE (05:30)
[2017-04-10] MEDS: HALOPERIDOL 5 MG/ML IM PRN ×2 (05:33→06:13)
[2017-04-10 06:49] VITALS: BP 123/71
[2017-04-10] MEDS: FAMOTIDINE 20 MG TABLET PO SCH ×2 (08:55→21:28)
[2017-04-10] MEDS: ENOXAPARIN 80 MG/0.8 ML SQ SCH ×2 (08:55→21:28)
[2017-04-10] MEDS: DIPHENHYDRAMINE 25 MG CAPSULE PO PRN (08:55)
[2017-04-10] MEDS: METOPROLOL SUCCINATE 25 MG TAB.ER.24H PO SCH (08:56)
[2017-04-10] MEDS: HYDROCORTISONE CRM 1%, 30GM TP SCH ×2 (08:56→21:28)
[2017-04-10] MEDS: SENNA/DOCUSATE TABLET PO SCH (08:56)
[2017-04-10 14:03] VITALS: BP 146/83
[2017-04-10 19:04] VITALS: BP 130/80
[2017-04-10] MEDS ORDERED: POLYETHYLENE GLYCOL 17 GM PACKET PO PRN (19:30)
[2017-04-10] MEDS ORDERED: BISACODYL 10 MG SUPP PR PRN (19:30)
[2017-04-11 01:33] VITALS: BP 107/71
[2017-04-11] MEDS: METOPROLOL SUCCINATE 25 MG TAB.ER.24H PO SCH (04:54)
[2017-04-11 07:05] VITALS: BP 152/81
[2017-04-11] MEDS: FAMOTIDINE 20 MG TABLET PO SCH ×2 (08:17→20:34)
[2017-04-11] MEDS: SENNA/DOCUSATE TABLET PO SCH (08:17)
[2017-04-11] MEDS: ENOXAPARIN 80 MG/0.8 ML SQ SCH ×2 (08:17→20:34)
[2017-04-11] MEDS: HYDROCORTISONE CRM 1%, 30GM TP SCH ×2 (08:17→20:34)
[2017-04-11 14:00] VITALS: BP 118/81
[2017-04-11 19:47] VITALS: BP 116/89
[2017-04-12 01:08] VITALS: BP 127/86
[2017-04-12] MEDS: DIPHENHYDRAMINE 25 MG CAPSULE PO PRN ×2 (02:20→19:36)
[2017-04-12] MEDS: METOPROLOL SUCCINATE 25 MG TAB.ER.24H PO SCH (05:18)
[2017-04-12 06:53] VITALS: BP 115/64
[2017-04-12] MEDS: HYDROCORTISONE CRM 1%, 30GM TP SCH ×2 (08:21→19:35)
[2017-04-12] MEDS: FAMOTIDINE 20 MG TABLET PO SCH ×2 (08:21→19:36)
[2017-04-12] MEDS: SENNA/DOCUSATE TABLET PO SCH (08:21)
[2017-04-12] MEDS: ACETAMINOPHEN 325 MG TABLET PO PRN (08:21)
[2017-04-12] MEDS: ENOXAPARIN 80 MG/0.8 ML SQ SCH ×2 (08:22→19:36)
[2017-04-12 14:51] VITALS: BP 116/79
[2017-04-12 18:44] VITALS: BP 109/81
[2017-04-13 04:22] VITALS: BP 143/81
[2017-04-13] MEDS: DIPHENHYDRAMINE 25 MG CAPSULE PO PRN ×2 (05:05→20:09)
[2017-04-13] MEDS: METOPROLOL SUCCINATE 25 MG TAB.ER.24H PO SCH (05:05)
[2017-04-13 07:10] VITALS: BP 112/70
[2017-04-13] MEDS: FAMOTIDINE 20 MG TABLET PO SCH ×2 (11:31→20:09)
[2017-04-13] MEDS: HYDROCORTISONE CRM 1%, 30GM TP SCH ×2 (11:32→20:09)
[2017-04-13] MEDS: SENNA/DOCUSATE TABLET PO SCH (11:32)
[2017-04-13] MEDS: ENOXAPARIN 80 MG/0.8 ML SQ SCH ×2 (11:32→20:10)
[2017-04-13 13:50] VITALS: BP 100/74
[2017-04-13 18:30] VITALS: BP 110/64
[2017-04-14 03:17] VITALS: BP 137/77
[2017-04-14] MEDS: METOPROLOL SUCCINATE 25 MG TAB.ER.24H PO SCH (05:59)
[2017-04-14 06:38] VITALS: BP 127/72
[2017-04-14] MEDS: FAMOTIDINE 20 MG TABLET PO SCH (09:10)
[2017-04-14] MEDS: SENNA/DOCUSATE TABLET PO SCH (09:10)
[2017-04-14] MEDS: HYDROCORTISONE CRM 1%, 30GM TP SCH (09:11)
[2017-04-14] MEDS: ENOXAPARIN 80 MG/0.8 ML SQ SCH (09:11)
[2017-04-14] MEDS ORDERED: METO25TA91 PO (09:22)
[2017-04-14] MEDS ORDERED: RIVA20TA PO (09:24)
[2017-04-14] MEDS ORDERED: RIVA15TA PO (09:24)
== END 2017-04-14 11:17 | DRG 70 ==
LOC: ED 17:41 → EDIP 17:42 → ED 18:20 → 4EST 18:43 → 4WST 21:09 → 3NE 03-21 18:06
PROVIDERS: ADMIT Internal Medicine; ATTEND Hospitalist
PROC: 0T9B70Z Drainage of Bladder with Drainage Device, Via Natural or Artificial Opening (ICD-10-PCS; principal; 2017-02-08)
DX: G93.41 Metabolic encephalopathy (principal); E43 Unspecified severe protein-calorie malnutrition; J18.9 Pneumonia, unspecified organism; I82.402 Acute embolism and thrombosis of unspecified deep veins of left lower extremity; E87.2 Acidosis; E87.0 Hyperosmolality and hypernatremia; D68.69 Other thrombophilia; D75.1 Secondary polycythemia; N39.0 Urinary tract infection, site not specified; F03.91 Unspecified dementia, unspecified severity, with behavioral disturbance; R17 Unspecified jaundice; R13.10 Dysphagia, unspecified; I48.0 Paroxysmal atrial fibrillation; L89.90 Pressure ulcer of unspecified site, unspecified stage; D75.89 Other specified diseases of blood and blood-forming organs; W18.30XA Fall on same level, unspecified, initial encounter; E86.0 Dehydration; B95.5 Unspecified streptococcus as the cause of diseases classified elsewhere; F03.90 Unspecified dementia, unspecified severity, without behavioral disturbance, psychotic disturbance, mood disturbance, and anxiety; Z68.22 Body mass index [BMI] 22.0-22.9, adult; L29.9 Pruritus, unspecified; L89.91 Pressure ulcer of unspecified site, stage 1; R62.7 Adult failure to thrive; Y95 Nosocomial condition; Z79.01 Long term (current) use of anticoagulants; Z91.19 Patient's noncompliance with other medical treatment and regimen; Z91.81 History of falling; R41.89 Other symptoms and signs involving cognitive functions and awareness
CPT/HCPCS: 36415; 70450; 71010; 74230; 76770; 80048; 80053; 80202; 81001; 82010; 82040; 82140; 82306; 82550; 82565; 82607; 82746; 82962; 83605; 83735; 83880; 83930; 84100; 84134; 84145; 84443; 84484; 84520; 85025; 85610; 87040; 87086; 87324; 90686; 93005; 93306; 94640; 96360; 96361; J0696; J1644; J1650; J2543; J3370; J3480; J7070; 92523-GN; J1630; J2060; J3420; J3475; J7030; J7050; Q0163

== ENCOUNTER 2017-04-16 15:43 | Inpatient (IN) | payer OTHER ==
[~2017-04-16] VITALS: Ht 182.9 cm; Wt 80.2 kg
[~2017-04-16 15:43] MED LIST: METO25TA91 PO; RIVA15TA PO; RIVA20TA PO
[2017-04-16 16:31] LABS: HEMATOCRIT 43.4 % (39.2-51.8); HEMOGLOBIN 14.7 g/dL (13.7-18.0); WHITE BLOOD COUNT 6.6 x10^3/uL (3.4-10)
[2017-04-16 16:35] LABS: ASPARTATE AMINO TRANSFERASE 23 U/L (15-37); BLOOD UREA NITROGEN 34 mg/dL (7-18)
[2017-04-16] MEDS ORDERED: hydrALAzine 20 MG/ML, 1ML IVPush PRN (18:30)
[2017-04-16] MEDS ORDERED: ONDANSETRON 2MG/ML, 2ML IVPush PRN (18:30)
[2017-04-16 19:30] VITALS: BP 95/58
[2017-04-16] MEDS: RIVAROXABAN 15 MG TABLET PO SCH (22:53)
[2017-04-16] MEDS: METOPROLOL TARTRATE 25 MG TABLET PO SCH (22:53)
[2017-04-17 03:45] VITALS: BP 113/62
[2017-04-17 05:32] LABS: HEMATOCRIT 38.4 % (39.2-51.8); HEMOGLOBIN 13.2 g/dL (13.7-18.0); WHITE BLOOD COUNT 6.3 x10^3/uL (3.4-10)
[2017-04-17 05:50] LABS: ASPARTATE AMINO TRANSFERASE 17 U/L (15-37); BLOOD UREA NITROGEN 32 mg/dL (7-18)
[2017-04-17] MEDS: METOPROLOL TARTRATE 25 MG TABLET PO SCH ×2 (06:09→18:00)
[2017-04-17 06:51] VITALS: BP 118/75
[2017-04-17] MEDS: POTASSIUM CHLORIDE 20 MEQ PACKET PO SCH (08:00)
[2017-04-17] MEDS: RIVAROXABAN 15 MG TABLET PO SCH ×2 (08:01→18:00)
[2017-04-17] MEDS: FUROSEMIDE 40 MG TABLET PO SCH (08:02)
[2017-04-17 13:15] VITALS: BP 106/61
[2017-04-17 17:59] VITALS: BP 103/62
[2017-04-17 18:32] VITALS: BP 105/67
[2017-04-18 01:35] VITALS: BP 119/64
[2017-04-18] MEDS: METOPROLOL TARTRATE 25 MG TABLET PO SCH ×2 (05:24→18:25)
[2017-04-18 06:37] VITALS: BP 99/61
[2017-04-18] MEDS: FUROSEMIDE 40 MG TABLET PO SCH (07:33)
[2017-04-18] MEDS: POTASSIUM CHLORIDE 20 MEQ PACKET PO SCH (07:34)
[2017-04-18] MEDS: RIVAROXABAN 15 MG TABLET PO SCH ×2 (07:46→16:51)
[2017-04-18 12:19] VITALS: BP 116/72
[2017-04-18 16:48] VITALS: BP 115/57
[2017-04-18 18:51] VITALS: BP 89/59
[2017-04-19 03:30] VITALS: BP 101/59
[2017-04-19] MEDS: METOPROLOL TARTRATE 25 MG TABLET PO SCH ×2 (05:15→17:28)
[2017-04-19 07:51] VITALS: BP 110/74
[2017-04-19] MEDS: RIVAROXABAN 15 MG TABLET PO SCH ×2 (09:28→17:28)
[2017-04-19] MEDS: POTASSIUM CHLORIDE 20 MEQ PACKET PO SCH (09:28)
[2017-04-19] MEDS: FUROSEMIDE 40 MG TABLET PO SCH (09:28)
[2017-04-19 13:51] VITALS: BP 102/70
[2017-04-19 19:32] VITALS: BP 92/62
[2017-04-20 02:04] VITALS: BP 142/76
[2017-04-20] MEDS: METOPROLOL TARTRATE 25 MG TABLET PO SCH ×2 (05:41→16:23)
[2017-04-20 07:55] VITALS: BP 106/72
[2017-04-20] MEDS: FUROSEMIDE 40 MG TABLET PO SCH (08:42)
[2017-04-20] MEDS: POTASSIUM CHLORIDE 20 MEQ PACKET PO SCH (08:43)
[2017-04-20] MEDS: RIVAROXABAN 15 MG TABLET PO SCH ×2 (08:43→16:23)
[2017-04-20 13:19] VITALS: BP 98/66
[2017-04-20 19:10] VITALS: BP 99/65
[2017-04-21 00:58] VITALS: BP 120/74
[2017-04-21] MEDS: METOPROLOL TARTRATE 25 MG TABLET PO SCH ×2 (06:00→17:17)
[2017-04-21 06:17] VITALS: BP 125/66
[2017-04-21 07:16] VITALS: BP 128/70
[2017-04-21] MEDS: RIVAROXABAN 15 MG TABLET PO SCH ×2 (09:38→17:17)
[2017-04-21] MEDS: FUROSEMIDE 40 MG TABLET PO SCH (09:38)
[2017-04-21] MEDS: POTASSIUM CHLORIDE 20 MEQ PACKET PO SCH (09:38)
[2017-04-21 13:34] VITALS: BP 127/70
[2017-04-21 19:04] VITALS: BP 113/73
[2017-04-22 02:00] VITALS: BP 126/76
[2017-04-22] MEDS: METOPROLOL TARTRATE 25 MG TABLET PO SCH ×2 (05:29→17:34)
[2017-04-22 06:43] VITALS: BP 121/69
[2017-04-22] MEDS: RIVAROXABAN 15 MG TABLET PO SCH ×2 (08:43→17:33)
[2017-04-22] MEDS: POTASSIUM CHLORIDE 20 MEQ PACKET PO SCH (08:43)
[2017-04-22] MEDS: FUROSEMIDE 40 MG TABLET PO SCH (08:43)
[2017-04-22 13:37] VITALS: BP 114/65
[2017-04-22 19:36] VITALS: BP 107/69
[2017-04-23 01:34] VITALS: BP 110/71
[2017-04-23] MEDS: METOPROLOL TARTRATE 25 MG TABLET PO SCH ×2 (06:05→18:00)
[2017-04-23 07:23] VITALS: BP 125/60
[2017-04-23] MEDS: RIVAROXABAN 15 MG TABLET PO SCH ×2 (07:59→18:01)
[2017-04-23] MEDS: POTASSIUM CHLORIDE 20 MEQ PACKET PO SCH (07:59)
[2017-04-23] MEDS: FUROSEMIDE 40 MG TABLET PO SCH (07:59)
[2017-04-23 13:14] LABS: PPD INJECT PLACED
[2017-04-23 14:48] VITALS: BP 104/67
[2017-04-23 19:17] VITALS: BP 101/63
[2017-04-24 00:54] VITALS: BP 125/65
[2017-04-24] MEDS: METOPROLOL TARTRATE 25 MG TABLET PO SCH ×2 (05:51→17:21)
[2017-04-24 07:40] VITALS: BP 112/62
[2017-04-24] MEDS: POTASSIUM CHLORIDE 20 MEQ PACKET PO SCH (08:13)
[2017-04-24] MEDS: RIVAROXABAN 15 MG TABLET PO SCH ×2 (08:13→17:20)
[2017-04-24] MEDS: FUROSEMIDE 40 MG TABLET PO SCH (08:13)
[2017-04-24 13:30] VITALS: BP 100/60
[2017-04-24 19:49] VITALS: BP 105/60
[2017-04-25 02:00] VITALS: BP 141/87
[2017-04-25] MEDS: METOPROLOL TARTRATE 25 MG TABLET PO SCH ×2 (06:08→17:21)
[2017-04-25 07:08] VITALS: BP 119/80
[2017-04-25] MEDS: POTASSIUM CHLORIDE 20 MEQ PACKET PO SCH (07:37)
[2017-04-25] MEDS: RIVAROXABAN 15 MG TABLET PO SCH ×2 (07:37→17:21)
[2017-04-25] MEDS: FUROSEMIDE 40 MG TABLET PO SCH (07:37)
[2017-04-25] MEDS: maalox/diphenh/lido/sucralfate 5 ML PO SCH ×3 (17:21→22:09)
[2017-04-25 17:37] LABS: TUBERCULIN 48 HOUR READ 0 mm (< 5)
[2017-04-25 18:24] VITALS: BP 123/61
[2017-04-25] MEDS ORDERED: DIPHENHYDRAMINE 25 MG CAPSULE PO ONE (21:30)
[2017-04-26 01:12] VITALS: BP 116/64
[2017-04-26] MEDS: METOPROLOL TARTRATE 25 MG TABLET PO SCH ×2 (06:00→17:26)
[2017-04-26] MEDS: maalox/diphenh/lido/sucralfate 5 ML PO SCH ×5 (06:23→21:37)
[2017-04-26 06:32] VITALS: BP 123/62
[2017-04-26 06:47] VITALS: BP 112/62
[2017-04-26] MEDS: FUROSEMIDE 40 MG TABLET PO SCH (08:24)
[2017-04-26] MEDS: POTASSIUM CHLORIDE 20 MEQ PACKET PO SCH (08:24)
[2017-04-26] MEDS: RIVAROXABAN 15 MG TABLET PO SCH ×2 (08:24→17:26)
[2017-04-26 12:20] VITALS: BP 124/68
[2017-04-26 19:16] VITALS: BP 95/58
[2017-04-26 20:57] LABS: TUBERCULIN 72 HOUR READ 0 mm (< 5)
[2017-04-27 02:34] VITALS: BP 102/61
[2017-04-27] MEDS: METOPROLOL TARTRATE 25 MG TABLET PO SCH ×2 (06:00→18:25)
[2017-04-27] MEDS: maalox/diphenh/lido/sucralfate 5 ML PO SCH ×5 (06:26→22:19)
[2017-04-27 07:17] VITALS: BP 113/64
[2017-04-27] MEDS: FUROSEMIDE 40 MG TABLET PO SCH (08:50)
[2017-04-27] MEDS: POTASSIUM CHLORIDE 20 MEQ PACKET PO SCH (08:50)
[2017-04-27] MEDS: RIVAROXABAN 15 MG TABLET PO SCH ×2 (08:53→18:23)
[2017-04-27 13:53] VITALS: BP 113/71
[2017-04-27 18:43] VITALS: BP 91/51
[2017-04-28 03:55] VITALS: BP 117/66
[2017-04-28 05:08] LABS: HEMATOCRIT 41.5 % (39.2-51.8); HEMOGLOBIN 14.3 g/dL (13.7-18.0); WHITE BLOOD COUNT 6.6 x10^3/uL (3.4-10)
[2017-04-28 05:14] LABS: BLOOD UREA NITROGEN 27 mg/dL (7-18)
[2017-04-28] MEDS: METOPROLOL TARTRATE 25 MG TABLET PO SCH ×2 (06:00→18:19)
[2017-04-28] MEDS: maalox/diphenh/lido/sucralfate 5 ML PO SCH ×5 (06:26→21:51)
[2017-04-28 06:41] VITALS: BP 117/66
[2017-04-28] MEDS: POTASSIUM CHLORIDE 20 MEQ PACKET PO SCH (08:00)
[2017-04-28] MEDS: MUPIROCIN OINT 2%, 22GM TP SCH ×3 (10:00→21:51)
[2017-04-28] MEDS: FUROSEMIDE 40 MG TABLET PO SCH (10:22)
[2017-04-28] MEDS: RIVAROXABAN 15 MG TABLET PO SCH ×2 (10:23→18:19)
[2017-04-28 14:00] VITALS: BP 106/69
[2017-04-28 19:31] VITALS: BP 105/55
[2017-04-29 01:40] VITALS: BP 115/65
[2017-04-29] MEDS: maalox/diphenh/lido/sucralfate 5 ML PO SCH ×5 (05:20→21:14)
[2017-04-29] MEDS: METOPROLOL TARTRATE 25 MG TABLET PO SCH ×2 (05:20→17:23)
[2017-04-29 06:43] VITALS: BP 120/77
[2017-04-29] MEDS: FUROSEMIDE 40 MG TABLET PO SCH (07:41)
[2017-04-29] MEDS: RIVAROXABAN 15 MG TABLET PO SCH ×2 (07:41→17:23)
[2017-04-29] MEDS: POTASSIUM CHLORIDE 20 MEQ PACKET PO SCH (07:41)
[2017-04-29] MEDS: MUPIROCIN OINT 2%, 22GM TP SCH ×3 (07:42→21:14)
[2017-04-29 13:28] VITALS: BP 114/67
[2017-04-29 19:26] VITALS: BP 109/62
[2017-04-30 03:45] VITALS: BP 144/68
[2017-04-30] MEDS: METOPROLOL TARTRATE 25 MG TABLET PO SCH ×2 (06:09→18:04)
[2017-04-30] MEDS: maalox/diphenh/lido/sucralfate 5 ML PO SCH ×5 (06:09→20:36)
[2017-04-30 06:37] VITALS: BP 113/71
[2017-04-30] MEDS: RIVAROXABAN 15 MG TABLET PO SCH ×2 (07:58→18:05)
[2017-04-30] MEDS: FUROSEMIDE 40 MG TABLET PO SCH (07:58)
[2017-04-30] MEDS: MUPIROCIN OINT 2%, 22GM TP SCH ×3 (07:58→20:36)
[2017-04-30] MEDS: POTASSIUM CHLORIDE 20 MEQ PACKET PO SCH (07:59)
[2017-04-30 12:47] VITALS: BP 105/67
[2017-04-30 18:36] VITALS: BP 105/66
[2017-05-01 00:53] VITALS: BP 118/67
[2017-05-01] MEDS: METOPROLOL TARTRATE 25 MG TABLET PO SCH ×2 (06:23→17:59)
[2017-05-01] MEDS: maalox/diphenh/lido/sucralfate 5 ML PO SCH ×6 (06:24→23:24)
[2017-05-01 07:00] VITALS: BP 107/66
[2017-05-01] MEDS: MUPIROCIN OINT 2%, 22GM TP SCH ×3 (09:59→20:21)
[2017-05-01] MEDS: POTASSIUM CHLORIDE 20 MEQ PACKET PO SCH (10:00)
[2017-05-01] MEDS: RIVAROXABAN 15 MG TABLET PO SCH ×2 (10:00→16:32)
[2017-05-01] MEDS: FUROSEMIDE 40 MG TABLET PO SCH (10:00)
[2017-05-01 14:00] VITALS: BP 110/68
[2017-05-01 18:51] VITALS: BP 100/73
[2017-05-01] MEDS: DIPHENHYDRAMINE 25 MG CAPSULE PO PRN (23:24)
[2017-05-02 01:13] VITALS: BP 97/62
[2017-05-02 05:59] VITALS: BP 102/57
[2017-05-02] MEDS: METOPROLOL TARTRATE 25 MG TABLET PO SCH ×2 (06:00→17:54)
[2017-05-02] MEDS: maalox/diphenh/lido/sucralfate 5 ML PO SCH ×5 (06:00→22:00)
[2017-05-02 08:00] VITALS: BP 109/49
[2017-05-02] MEDS: POTASSIUM CHLORIDE 20 MEQ PACKET PO SCH (08:14)
[2017-05-02] MEDS: FUROSEMIDE 40 MG TABLET PO SCH (08:15)
[2017-05-02] MEDS: RIVAROXABAN 15 MG TABLET PO SCH ×2 (08:15→17:54)
[2017-05-02] MEDS: MUPIROCIN OINT 2%, 22GM TP SCH ×3 (12:43→22:00)
[2017-05-02 14:00] VITALS: BP 94/61
[2017-05-02 19:03] VITALS: BP 96/60
[2017-05-02] MEDS: DIPHENHYDRAMINE 25 MG CAPSULE PO PRN (22:00)
[2017-05-03 00:11] VITALS: BP 117/84
[2017-05-03 05:38] VITALS: BP 119/70
[2017-05-03] MEDS: METOPROLOL TARTRATE 25 MG TABLET PO SCH ×2 (05:40→17:34)
[2017-05-03] MEDS: maalox/diphenh/lido/sucralfate 5 ML PO SCH ×5 (05:40→21:03)
[2017-05-03 06:51] VITALS: BP 120/73
[2017-05-03] MEDS: FUROSEMIDE 40 MG TABLET PO SCH (09:56)
[2017-05-03] MEDS: POTASSIUM CHLORIDE 20 MEQ PACKET PO SCH (09:56)
[2017-05-03] MEDS: RIVAROXABAN 15 MG TABLET PO SCH ×2 (09:56→17:34)
[2017-05-03] MEDS: MUPIROCIN OINT 2%, 22GM TP SCH ×3 (12:23→21:03)
[2017-05-03] MEDS: MAGNESIUM CITRATE 300ML ORAL SOL PO SCH (12:23)
[2017-05-03 14:03] VITALS: BP 122/79
[2017-05-03 17:33] VITALS: BP 104/67
[2017-05-03 18:41] VITALS: BP 105/70
[2017-05-04 00:47] VITALS: BP 112/64
[2017-05-04 05:29] VITALS: BP 102/60
[2017-05-04] MEDS: METOPROLOL TARTRATE 25 MG TABLET PO SCH ×2 (05:32→18:00)
[2017-05-04] MEDS: maalox/diphenh/lido/sucralfate 5 ML PO SCH ×5 (05:34→21:08)
[2017-05-04 06:52] VITALS: BP 109/69
[2017-05-04] MEDS: POTASSIUM CHLORIDE 20 MEQ PACKET PO SCH (08:00)
[2017-05-04] MEDS: MAGNESIUM CITRATE 300ML ORAL SOL PO SCH (09:00)
[2017-05-04] MEDS: RIVAROXABAN 15 MG TABLET PO SCH ×2 (09:33→16:59)
[2017-05-04] MEDS: SENNA/DOCUSATE TABLET PO SCH (09:33)
[2017-05-04] MEDS: MUPIROCIN OINT 2%, 22GM TP SCH ×3 (09:33→21:07)
[2017-05-04] MEDS: POLYETHYLENE GLYCOL 17 GM PACKET PO SCH (09:33)
[2017-05-04] MEDS: FUROSEMIDE 40 MG TABLET PO SCH (09:33)
[2017-05-04 12:50] VITALS: BP 139/83
[2017-05-04 16:57] VITALS: BP 96/58
[2017-05-04 18:41] VITALS: BP 109/62
[2017-05-04] MEDS: DIPHENHYDRAMINE 25 MG CAPSULE PO PRN (21:08)
[2017-05-05 04:21] VITALS: BP 106/59
[2017-05-05] MEDS: METOPROLOL TARTRATE 25 MG TABLET PO SCH ×2 (05:56→18:38)
[2017-05-05] MEDS: maalox/diphenh/lido/sucralfate 5 ML PO SCH ×5 (05:57→20:34)
[2017-05-05 06:53] VITALS: BP 110/62
[2017-05-05] MEDS: POLYETHYLENE GLYCOL 17 GM PACKET PO SCH (09:07)
[2017-05-05] MEDS: SENNA/DOCUSATE TABLET PO SCH (09:08)
[2017-05-05] MEDS: MUPIROCIN OINT 2%, 22GM TP SCH ×3 (09:08→20:35)
[2017-05-05] MEDS: FUROSEMIDE 40 MG TABLET PO SCH (09:08)
[2017-05-05] MEDS: RIVAROXABAN 15 MG TABLET PO SCH ×2 (09:09→18:37)
[2017-05-05] MEDS: POTASSIUM CHLORIDE 20 MEQ PACKET PO SCH (09:09)
[2017-05-05 10:15] LABS: HEMATOCRIT 42.4 % (39.2-51.8); HEMOGLOBIN 14.5 g/dL (13.7-18.0); WHITE BLOOD COUNT 9.9 x10^3/uL (3.4-10)
[2017-05-05 10:21] LABS: ASPARTATE AMINO TRANSFERASE 20 U/L (15-37); BLOOD UREA NITROGEN 21 mg/dL (7-18)
[2017-05-05 10:31] LABS: IS PT STATUS REG ER OR PRE ER? NO
[2017-05-05 12:45] VITALS: BP 105/63
[2017-05-05 19:30] VITALS: BP 117/52
[2017-05-05] MEDS: SULFAMETH./TRIMETHOPRIM DS 800MG/160MG TABLET PO SCH (20:34)
[2017-05-06 01:20] VITALS: BP 125/62
[2017-05-06 05:21] LABS: HEMATOCRIT 41.9 % (39.2-51.8); HEMOGLOBIN 14.2 g/dL (13.7-18.0); WHITE BLOOD COUNT 7.3 x10^3/uL (3.4-10)
[2017-05-06 05:28] LABS: BLOOD UREA NITROGEN 25 mg/dL (7-18)
[2017-05-06] MEDS: maalox/diphenh/lido/sucralfate 5 ML PO SCH ×5 (05:46→22:20)
[2017-05-06 06:00] VITALS: BP 114/56
[2017-05-06] MEDS: METOPROLOL TARTRATE 25 MG TABLET PO SCH ×2 (06:00→18:00)
[2017-05-06] MEDS: SULFAMETH./TRIMETHOPRIM DS 800MG/160MG TABLET PO SCH ×2 (09:43→22:20)
[2017-05-06] MEDS: POLYETHYLENE GLYCOL 17 GM PACKET PO SCH (09:43)
[2017-05-06] MEDS: SENNA/DOCUSATE TABLET PO SCH (09:43)
[2017-05-06] MEDS: MUPIROCIN OINT 2%, 22GM TP SCH ×3 (09:44→22:21)
[2017-05-06] MEDS: RIVAROXABAN 15 MG TABLET PO SCH ×2 (09:45→17:00)
[2017-05-06] MEDS: FUROSEMIDE 40 MG TABLET PO SCH (09:45)
[2017-05-06 12:29] VITALS: BP 114/57
[2017-05-06] MEDS ORDERED: BISACODYL 10 MG SUPP PR PRN (14:30)
[2017-05-06 18:22] VITALS: BP 108/65
[2017-05-07 02:35] VITALS: BP 111/58
[2017-05-07] MEDS: METOPROLOL TARTRATE 25 MG TABLET PO SCH ×2 (06:00→18:18)
[2017-05-07 06:02] VITALS: BP 115/71
[2017-05-07] MEDS: maalox/diphenh/lido/sucralfate 5 ML PO SCH ×5 (06:06→22:25)
[2017-05-07 07:19] VITALS: BP 120/64
[2017-05-07] MEDS: SENNA/DOCUSATE TABLET PO SCH (09:00)
[2017-05-07] MEDS: RIVAROXABAN 15 MG TABLET PO SCH ×2 (09:36→18:18)
[2017-05-07] MEDS: POLYETHYLENE GLYCOL 17 GM PACKET PO SCH (09:36)
[2017-05-07] MEDS: MUPIROCIN OINT 2%, 22GM TP SCH ×3 (09:37→22:25)
[2017-05-07] MEDS: FUROSEMIDE 40 MG TABLET PO SCH (09:37)
[2017-05-07] MEDS: SULFAMETH./TRIMETHOPRIM DS 800MG/160MG TABLET PO SCH ×2 (09:37→22:24)
[2017-05-07 12:53] VITALS: BP 106/68
[2017-05-07 20:17] VITALS: BP 129/82
[2017-05-08 01:06] VITALS: BP 121/68
[2017-05-08] MEDS: maalox/diphenh/lido/sucralfate 5 ML PO SCH ×5 (06:24→20:20)
[2017-05-08] MEDS: METOPROLOL TARTRATE 25 MG TABLET PO SCH ×2 (06:26→17:10)
[2017-05-08 07:21] VITALS: BP 113/59
[2017-05-08] MEDS: POLYETHYLENE GLYCOL 17 GM PACKET PO SCH (10:03)
[2017-05-08] MEDS: SULFAMETH./TRIMETHOPRIM DS 800MG/160MG TABLET PO SCH ×2 (10:04→20:20)
[2017-05-08] MEDS: MUPIROCIN OINT 2%, 22GM TP SCH ×3 (10:04→20:21)
[2017-05-08] MEDS: RIVAROXABAN 20 MG TABLET PO SCH (10:04)
[2017-05-08] MEDS: FUROSEMIDE 40 MG TABLET PO SCH (10:04)
[2017-05-08] MEDS: SENNA/DOCUSATE TABLET PO SCH (10:04)
[2017-05-08 13:11] VITALS: BP 102/64
[2017-05-08 19:24] VITALS: BP 95/56
[2017-05-09 01:12] VITALS: BP 133/71
[2017-05-09 04:51] VITALS: BP 117/67
[2017-05-09] MEDS: maalox/diphenh/lido/sucralfate 5 ML PO SCH ×5 (05:29→21:35)
[2017-05-09] MEDS: METOPROLOL TARTRATE 25 MG TABLET PO SCH ×2 (05:29→18:14)
[2017-05-09] MEDS: MUPIROCIN OINT 2%, 22GM TP SCH ×3 (09:00→21:00)
[2017-05-09] MEDS: POLYETHYLENE GLYCOL 17 GM PACKET PO SCH (09:19)
[2017-05-09] MEDS: FUROSEMIDE 40 MG TABLET PO SCH (09:20)
[2017-05-09] MEDS: SENNA/DOCUSATE TABLET PO SCH (09:20)
[2017-05-09] MEDS: RIVAROXABAN 20 MG TABLET PO SCH (09:20)
[2017-05-09] MEDS: SULFAMETH./TRIMETHOPRIM DS 800MG/160MG TABLET PO SCH (09:20)
[2017-05-09] MEDS ORDERED: RIVA20TA PO (09:42)
[2017-05-09] MEDS ORDERED: MUPI22OI2 TP (09:42)
[2017-05-09] MEDS ORDERED: FURO40TA6 PO (09:42)
[2017-05-09] MEDS ORDERED: METO25TA35 PO (09:42)
[2017-05-09] MEDS ORDERED: POTA20PA25 PO (09:45)
[2017-05-09] MEDS ORDERED: AMOX1TAB64 PO (09:45)
[2017-05-09 12:51] VITALS: BP 110/60
[2017-05-09] MEDS: AMOXICILLIN/CLAV 875-125MG TABLET PO SCH ×2 (14:49→21:35)
[2017-05-09 19:03] VITALS: BP 134/84
[2017-05-10 01:35] VITALS: BP 117/58
[2017-05-10] MEDS: METOPROLOL TARTRATE 25 MG TABLET PO SCH ×2 (05:46→18:00)
[2017-05-10] MEDS: maalox/diphenh/lido/sucralfate 5 ML PO SCH ×5 (06:37→20:43)
[2017-05-10 06:59] VITALS: BP 130/82
[2017-05-10] MEDS: SENNA/DOCUSATE TABLET PO SCH (09:00)
[2017-05-10] MEDS: MUPIROCIN OINT 2%, 22GM TP SCH ×3 (09:30→20:43)
[2017-05-10] MEDS: FUROSEMIDE 40 MG TABLET PO SCH (09:31)
[2017-05-10] MEDS: RIVAROXABAN 20 MG TABLET PO SCH (09:31)
[2017-05-10] MEDS: POLYETHYLENE GLYCOL 17 GM PACKET PO SCH (09:31)
[2017-05-10] MEDS: AMOXICILLIN/CLAV 875-125MG TABLET PO SCH ×2 (09:31→20:43)
[2017-05-10 12:13] VITALS: BP 103/62
[2017-05-10 13:00] VITALS: BP 123/73
[2017-05-10 18:43] VITALS: BP 103/62
[2017-05-11 02:29] VITALS: BP 117/66
[2017-05-11] MEDS: METOPROLOL TARTRATE 25 MG TABLET PO SCH ×2 (05:55→19:51)
[2017-05-11] MEDS: maalox/diphenh/lido/sucralfate 5 ML PO SCH ×5 (06:20→19:51)
[2017-05-11] MEDS: SENNA/DOCUSATE TABLET PO SCH (07:40)
[2017-05-11] MEDS: RIVAROXABAN 20 MG TABLET PO SCH (07:40)
[2017-05-11] MEDS: AMOXICILLIN/CLAV 875-125MG TABLET PO SCH ×2 (07:40→19:51)
[2017-05-11] MEDS: ACETAMINOPHEN 325 MG TABLET PO PRN (07:40)
[2017-05-11] MEDS: POLYETHYLENE GLYCOL 17 GM PACKET PO SCH (07:41)
[2017-05-11] MEDS: DIPHENHYDRAMINE 25 MG CAPSULE PO PRN ×2 (07:41→15:20)
[2017-05-11] MEDS: FUROSEMIDE 40 MG TABLET PO SCH (07:42)
[2017-05-11] MEDS: MUPIROCIN OINT 2%, 22GM TP SCH ×3 (07:46→19:52)
[2017-05-11 09:05] VITALS: BP 117/66
[2017-05-11 13:25] VITALS: BP 122/60
[2017-05-11 19:40] VITALS: BP 117/64
[2017-05-12 02:02] VITALS: BP 125/61
[2017-05-12] MEDS: METOPROLOL TARTRATE 25 MG TABLET PO SCH ×2 (06:30→16:50)
[2017-05-12 06:39] VITALS: BP 120/71
[2017-05-12] MEDS: DIPHENHYDRAMINE 25 MG CAPSULE PO PRN (06:52)
[2017-05-12] MEDS: maalox/diphenh/lido/sucralfate 5 ML PO SCH ×5 (06:52→22:14)
[2017-05-12] MEDS: MUPIROCIN OINT 2%, 22GM TP SCH ×3 (09:00→20:52)
[2017-05-12] MEDS: AMOXICILLIN/CLAV 875-125MG TABLET PO SCH ×2 (11:07→20:52)
[2017-05-12] MEDS: SENNA/DOCUSATE TABLET PO SCH (11:08)
[2017-05-12] MEDS: ACETAMINOPHEN 325 MG TABLET PO PRN (11:08)
[2017-05-12] MEDS: POLYETHYLENE GLYCOL 17 GM PACKET PO SCH (11:08)
[2017-05-12] MEDS: RIVAROXABAN 20 MG TABLET PO SCH (11:09)
[2017-05-12] MEDS: FUROSEMIDE 40 MG TABLET PO SCH (11:09)
[2017-05-12 12:59] VITALS: BP 103/61
[2017-05-12 19:25] VITALS: BP 114/74
[2017-05-13 01:40] VITALS: BP 109/77
[2017-05-13] MEDS: maalox/diphenh/lido/sucralfate 5 ML PO SCH ×5 (06:21→22:03)
[2017-05-13 06:40] VITALS: BP 106/62
[2017-05-13] MEDS: POLYETHYLENE GLYCOL 17 GM PACKET PO SCH (08:26)
[2017-05-13] MEDS: SENNA/DOCUSATE TABLET PO SCH (08:26)
[2017-05-13] MEDS: RIVAROXABAN 20 MG TABLET PO SCH (08:27)
[2017-05-13] MEDS: METOPROLOL TARTRATE 25 MG TABLET PO SCH ×2 (08:27→17:47)
[2017-05-13] MEDS: AMOXICILLIN/CLAV 875-125MG TABLET PO SCH ×2 (08:27→19:53)
[2017-05-13] MEDS: FUROSEMIDE 40 MG TABLET PO SCH (08:28)
[2017-05-13] MEDS: MUPIROCIN OINT 2%, 22GM TP SCH ×3 (08:28→19:54)
[2017-05-13 13:05] VITALS: BP 103/55
[2017-05-13 19:31] VITALS: BP 102/55
[2017-05-14 01:41] VITALS: BP 131/78
[2017-05-14] MEDS: maalox/diphenh/lido/sucralfate 5 ML PO SCH ×4 (06:04→20:01)
[2017-05-14 06:38] VITALS: BP 123/63
[2017-05-14] MEDS: POLYETHYLENE GLYCOL 17 GM PACKET PO SCH (08:31)
[2017-05-14] MEDS: METOPROLOL TARTRATE 25 MG TABLET PO SCH ×2 (08:32→17:11)
[2017-05-14] MEDS: FUROSEMIDE 40 MG TABLET PO SCH (08:32)
[2017-05-14] MEDS: MUPIROCIN OINT 2%, 22GM TP SCH ×3 (08:33→20:42)
[2017-05-14] MEDS: RIVAROXABAN 20 MG TABLET PO SCH (08:33)
[2017-05-14] MEDS: AMOXICILLIN/CLAV 875-125MG TABLET PO SCH ×2 (08:33→20:42)
[2017-05-14] MEDS: SENNA/DOCUSATE TABLET PO SCH (08:33)
[2017-05-14 13:11] VITALS: BP 116/58
[2017-05-14 18:55] VITALS: BP 110/54
[2017-05-15 01:14] VITALS: BP 106/56
[2017-05-15] MEDS: METOPROLOL TARTRATE 25 MG TABLET PO SCH ×2 (05:48→18:11)
[2017-05-15] MEDS: maalox/diphenh/lido/sucralfate 5 ML PO SCH ×7 (05:49→22:23)
[2017-05-15 08:11] VITALS: BP 123/78
[2017-05-15] MEDS: SENNA/DOCUSATE TABLET PO SCH (09:04)
[2017-05-15] MEDS: RIVAROXABAN 20 MG TABLET PO SCH (09:04)
[2017-05-15] MEDS: POLYETHYLENE GLYCOL 17 GM PACKET PO SCH (09:04)
[2017-05-15] MEDS: FUROSEMIDE 40 MG TABLET PO SCH (09:05)
[2017-05-15] MEDS: AMOXICILLIN/CLAV 875-125MG TABLET PO SCH ×2 (09:05→22:22)
[2017-05-15] MEDS: MUPIROCIN OINT 2%, 22GM TP SCH ×3 (09:06→22:23)
[2017-05-15 13:50] VITALS: BP 93/60
[2017-05-15 18:11] VITALS: BP 118/58
[2017-05-15 22:08] VITALS: BP 125/70
[2017-05-16 00:51] VITALS: BP 135/69
[2017-05-16 05:52] VITALS: BP 149/81
[2017-05-16] MEDS: maalox/diphenh/lido/sucralfate 5 ML PO SCH ×5 (05:56→22:20)
[2017-05-16] MEDS: METOPROLOL TARTRATE 25 MG TABLET PO SCH ×2 (05:56→18:00)
[2017-05-16] MEDS ORDERED: AMOX1TAB64 PO (07:18)
[2017-05-16 08:30] VITALS: BP 132/73
[2017-05-16] MEDS: AMOXICILLIN/CLAV 875-125MG TABLET PO SCH ×2 (08:52→22:20)
[2017-05-16] MEDS: RIVAROXABAN 20 MG TABLET PO SCH (08:52)
[2017-05-16] MEDS: SENNA/DOCUSATE TABLET PO SCH (08:52)
[2017-05-16] MEDS: DIPHENHYDRAMINE 25 MG CAPSULE PO PRN ×2 (08:52→16:34)
[2017-05-16] MEDS: FUROSEMIDE 40 MG TABLET PO SCH (08:52)
[2017-05-16] MEDS: POLYETHYLENE GLYCOL 17 GM PACKET PO SCH (08:53)
[2017-05-16] MEDS: MUPIROCIN OINT 2%, 22GM TP SCH ×3 (08:53→22:20)
[2017-05-16 14:00] VITALS: BP 114/59
[2017-05-16 19:18] VITALS: BP 107/55
[2017-05-17 02:03] VITALS: BP 101/60
[2017-05-17] MEDS: maalox/diphenh/lido/sucralfate 5 ML PO SCH ×4 (06:00→21:28)
[2017-05-17] MEDS: METOPROLOL TARTRATE 25 MG TABLET PO SCH ×2 (06:00→18:00)
[2017-05-17 07:37] VITALS: BP 120/79
[2017-05-17] MEDS: ACETAMINOPHEN 325 MG TABLET PO PRN (08:26)
[2017-05-17] MEDS: AMOXICILLIN/CLAV 875-125MG TABLET PO SCH ×2 (08:27→21:28)
[2017-05-17] MEDS: MUPIROCIN OINT 2%, 22GM TP SCH ×3 (08:28→21:28)
[2017-05-17] MEDS: POLYETHYLENE GLYCOL 17 GM PACKET PO SCH (08:28)
[2017-05-17] MEDS: SENNA/DOCUSATE TABLET PO SCH (08:28)
[2017-05-17] MEDS: RIVAROXABAN 20 MG TABLET PO SCH (08:29)
[2017-05-17] MEDS: FUROSEMIDE 40 MG TABLET PO SCH (08:29)
[2017-05-17 10:22] LABS: HEMATOCRIT 42.8 % (39.2-51.8); HEMOGLOBIN 14.4 g/dL (13.7-18.0); WHITE BLOOD COUNT 7.5 x10^3/uL (3.4-10)
[2017-05-17 10:27] LABS: BLOOD UREA NITROGEN 25 mg/dL (7-18)
[2017-05-17 14:00] VITALS: BP 136/74
[2017-05-17 20:20] VITALS: BP 134/73
[2017-05-18 01:30] VITALS: BP 127/79
[2017-05-18] MEDS: METOPROLOL TARTRATE 25 MG TABLET PO SCH (06:00)
[2017-05-18] MEDS: maalox/diphenh/lido/sucralfate 5 ML PO SCH ×2 (06:00→11:25)
[2017-05-18 07:39] VITALS: BP 108/60
[2017-05-18] MEDS: POLYETHYLENE GLYCOL 17 GM PACKET PO SCH (09:00)
[2017-05-18] MEDS: SENNA/DOCUSATE TABLET PO SCH (09:00)
[2017-05-18] MEDS: RIVAROXABAN 20 MG TABLET PO SCH (11:24)
[2017-05-18] MEDS: AMOXICILLIN/CLAV 875-125MG TABLET PO SCH (11:24)
[2017-05-18] MEDS: FUROSEMIDE 40 MG TABLET PO SCH (11:24)
[2017-05-18] MEDS: MUPIROCIN OINT 2%, 22GM TP SCH (11:24)
== END 2017-05-18 14:29 | disposition home or self-care (01) | DRG 70 ==
LOC: ED 16:58 → EDIP 17:32 → 3NE 18:48
PROVIDERS: ADMIT Hospitalist; ATTEND Hospitalist
DX: G93.40 Encephalopathy, unspecified (principal); J18.9 Pneumonia, unspecified organism; I82.402 Acute embolism and thrombosis of unspecified deep veins of left lower extremity; E44.0 Moderate protein-calorie malnutrition; D68.69 Other thrombophilia; I48.0 Paroxysmal atrial fibrillation; I50.32 Chronic diastolic (congestive) heart failure; N39.0 Urinary tract infection, site not specified; L89.91 Pressure ulcer of unspecified site, stage 1; F03.90 Unspecified dementia, unspecified severity, without behavioral disturbance, psychotic disturbance, mood disturbance, and anxiety; W18.30XA Fall on same level, unspecified, initial encounter; R62.7 Adult failure to thrive; B96.20 Unspecified Escherichia coli [E. coli] as the cause of diseases classified elsewhere; Y95 Nosocomial condition; Z66 Do not resuscitate; Z79.01 Long term (current) use of anticoagulants; Z86.718 Personal history of other venous thrombosis and embolism; Y93.89 Activity, other specified; Y92.89 Other specified places as the place of occurrence of the external cause; Z68.24 Body mass index [BMI] 24.0-24.9, adult
CPT/HCPCS: 36415; 70100; 70450; 71010; 80047; 80048; 80053; 81001; 82040; 82140; 82607; 82746; 83690; 83735; 83880; 84100; 84484; 85025; 85610; 85730; 86480; 86580; 87077; 87086; 87186; 93005; 99285; J7512; Q0163

== ENCOUNTER 2017-11-07 15:39 | Emergency (ER) | payer OTHER ==
[~2017-11-07] VITALS: Ht 188 cm; Wt 74.7 kg
[~2017-11-07 15:39] MED LIST changes: +AMOX1TAB64 PO; +FURO40TA6 PO; +METO25TA35 PO; +MUPI22OI2 TP; +POTA20PA25 PO
[2017-11-07] MEDS ORDERED: SODIUM CHLORIDE 0.9% 1,000ML IVBOLUS ONE (16:00)
[2017-11-07] MEDS ORDERED: SODIUM CHLORIDE FLUSH 10ML SYR IVF ONE (16:00)
[2017-11-07] MEDS ORDERED: Roxanol PO (16:14)
[2017-11-07] MEDS ORDERED: ACET-1600 PO (16:14)
[2017-11-07] MEDS ORDERED: LORA0.5T PO (16:14)
[2017-11-07 16:49] LABS: BASOPHILS # (AUTO) 0.02 x10^3/uL (0-0.1); BASOPHILS % (AUTO) 0 % (0-1); EOSINOPHILS # (AUTO) 0.11 x10^3/uL (0-0.4); EOSINOPHILS % (AUTO) 2 % (1-7); LYMPHOCYTES # (AUTO) 1.37 x10^3/uL (1-3.4); LYMPHOCYTES % (AUTO) 22 % (22-44); MD NO; MEAN CORPUSCULAR HEMOGLOBIN 32.2 pg (27.5-34.5); MEAN CORPUSCULAR HGB CONC 33.7 g/dL (33.2-36.2); MEAN CORPUSCULAR VOLUME 95.4 fL (81-97); MEAN PLATELET VOLUME 7.9 fL (7.4-10.4); MONOCYTES # (AUTO) 0.52 x10^3/uL (0.2-0.8); MONOCYTES % (AUTO) 8 % (2-9); NEUTROPHILS # (AUTO) 4.36 x10^3/uL (1.8-6.8); NEUTROPHILS % (AUTO) 68 % (42-75); PLATELET COUNT 227 x10^3/uL (130-400); RED BLOOD COUNT 4.25 x10^6/uL (4.38-5.82); RED CELL DISTRIBUTION WIDTH 14.6 % (9.4-14.8)
[2017-11-07 16:58] LABS: ALANINE AMINOTRANSFERASE 26 U/L (12-78); ALBUMIN 3.3 g/dL (3.4-5.0); ANION GAP 6 mmol/L (5-15); CALCIUM 8.7 mg/dL (8.5-10.1); CHLORIDE 108 mmol/L (98-107)
[2017-11-07 17:01] LABS: ALKALINE PHOSPHATASE 95 U/L (45-117); BILIRUBIN,TOTAL 1.3 mg/dL (0.2-1.0); CREATINE KINASE, TOTAL 42 U/L (39-308); CREATININE 0.87 mg/dL (0.7-1.3); TOTAL PROTEIN 6.5 g/dL (6.4-8.2)
[2017-11-07] MEDS ORDERED: SODIUM CHLORIDE 0.9% 1,000 ML IV SCH (17:40)
[2017-11-07 17:46] VITALS: BP 129/65
[2017-11-07] MEDS ORDERED: PROMETHAZINE 25 MG/ML, 1ML IM PRN (18:00)
[2017-11-07] MEDS ORDERED: LORazepam 0.5MG TABLET PO PRN (18:00)
[2017-11-07] MEDS ORDERED: ACETAMINOPHEN 500 MG TABLET PO PRN (18:00)
[2017-11-07] MEDS ORDERED: METOCLOPRAMIDE 5 MG/ML, 2ML IVPush PRN (18:00)
[2017-11-07] MEDS ORDERED: ONDANSETRON ODT 4 MG PO PRN (18:00)
[2017-11-07] MEDS ORDERED: POLYETHYLENE GLYCOL 17 GM PACKET PO PRN (18:00)
[2017-11-07] MEDS ORDERED: ONDANSETRON 2MG/ML, 2ML IVPush PRN (18:00)
[2017-11-07 18:11] LABS: INTERNATIONAL NORMALIZED RATIO 1.07 (0.93-1.1)
[2017-11-08] MEDS ORDERED: METOPROLOL TARTRATE 25 MG TABLET PO ONE (09:00)
== END 2017-11-07 18:59 | disposition home or self-care (01) ==
LOC: ED 17:39 → EDIP 17:40 → UNDOADMIN 17:40 → ED 18:05
DX: R07.81 Pleurodynia (principal); I10 Essential (primary) hypertension; I48.91 Unspecified atrial fibrillation
CPT/HCPCS: 36415; 70450; 71045; 71250; 72190; 80053; 82550; 85025; 85610; 99285